=== PATIENT | female | born 1995 | race Caucasian/White ===

== ENCOUNTER 2017-08-20 17:14 | Emergency (ER) | payer OTHER, SELFPAY ==
[2017-08-20 17:15] VITALS: BP 138/97; PULSE 59; RESP 18; TEMP 36.9; O2SAT 97; BMI 22.6
--- NOTE | 2017-08-20 17:29 | ED.VISSUMM ---
- ER Visit Summary Date of Service: 08/20/17 Chief Complaint: Left thumb injury History of Present Illness: The patient is a 22 F presents to the emergency department with injury to her left thumb tip. Patient was cutting potatoes. She accidentally incised tip of the left thumb. She denies any other injury. A towel was placed and she presented here immediately. She does not take anticoagulants. She thinks her last tetanus is greater than 10 years ago. The patient is otherwise healthy. Physical Examination: Exam is relatively unremarkable. Patient is a 1 cm ovoid area of tissue loss in the distal tip of the thumb. There is some mild active bleeding. It does not involve the nail. Flexion and extension are preserved. Cap refill is less than 2 seconds. Test Results: [] Emergency Department Course and Treatment: The patient had no laceration that would benefit from primary closure as she had total tissue loss of the distal tip of the thumb. The area was irrigated. Surgifoam was placed in a loose dressing to prevent constrictive ischemia was placed. The patient was observed and had no further bleeding. We will have her keep the dressing in place for the next 24 hours. She was counseled to return to the emergency department with increasing pain or increasing bleeding. She is comfortable with this plan of care and will continue topical wound therapy after. She will be discharged home. Treatment Plan: [] Disposition: Discharge Impression: 1. Skin avulsion left thumb This note was generated with [employer] dictation software. It may contain incorrect words, spelling, and punctuation that were not noted in review of the chart prior to signing ED Disposition - Plan for ED Patient: Chief Complaint: Laceration Instructions: ED Laceration Hand Referrals: Andrew Lainez MD [Primary Care Provider] - Additional Instructions: Leave dressing in place for 24 hours.
[2017-08-20] MEDS: Diphth,Pertuss(Acell),Tet Vac 0.5 ML Vial IM (17:40)
[2017-08-20 18:21] VITALS: PULSE 85; RESP 16; O2SAT 99
== END 2017-08-20 18:21 | disposition home or self-care (01) ==
PROVIDERS: Emergency Provider Emergency Medicine; Family Provider Family Medicine; PCP Family Medicine
DX: S61.012A Laceration without foreign body of left thumb without damage to nail, initial encounter (principal); W26.0XXA Contact with knife, initial encounter; Y93.89 Activity, other specified; Y92.9 Unspecified place or not applicable
CPT/HCPCS: 90471; 90715; 99283

== ENCOUNTER → 2017-12-25 07:16 | Outpatient (CLI) | payer OTHER, SELFPAY ==
[2017-12-25 08:08] LABS: hCG Titer Quant., Serum 110 mIU/mL (<9 non-preg)
== END ==
PROVIDERS: Family Provider Family Medicine; PCP Family Medicine; Visit Provider Obstetrics & Gynecology Reproductive Endocrinology
DX: Z32.00 Encounter for pregnancy test, result unknown (principal)
CPT/HCPCS: 36415; 84702

== ENCOUNTER → 2017-12-27 07:16 | Outpatient (CLI) | payer OTHER, SELFPAY ==
[2017-12-27 08:24] LABS: hCG Titer Quant., Serum 282 mIU/mL (<9 non-preg)
== END ==
PROVIDERS: Family Provider Family Medicine; PCP Family Medicine; Visit Provider Obstetrics & Gynecology Reproductive Endocrinology
DX: Z32.01 Encounter for pregnancy test, result positive (principal)
CPT/HCPCS: 36415; 84702

== ENCOUNTER → 2018-03-26 11:13 | Outpatient (CLI) | payer OTHER, SELFPAY ==
[2018-03-24 13:33] VITALS: BMI 22.4
== END ==
PROVIDERS: Family Provider Family Medicine; PCP Family Medicine; Referring Provider Obstetrics & Gynecology; Visit Provider Obstetrics & Gynecology
DX: Z36.9 Encounter for antenatal screening, unspecified (principal)
CPT/HCPCS: 36415

== ENCOUNTER → 2018-04-10 08:25 | Outpatient (CLI) | payer OTHER, SELFPAY ==
[2018-03-24 13:33] VITALS: BMI 22.4
--- NOTE | 2018-04-10 08:27 | US_ITS ---
STUDY: SECOND AND THIRD TRIMESTER OBSTETRICAL ULTRASOUND REASON FOR EXAM: Female, 22 years old. Routine survey. LMP: November 27, 2017. TECHNIQUE: Transabdominal TECHNICAL QUALITY: Adequate. PRIOR ULTRASOUND: None. FINDINGS: There is a single intrauterine fetus. The fetus is in a breech presentation. There is demonstrated cardiac activity with a heart rate of 156 bpm. There is a normal amniotic fluid volume. The largest amniotic fluid pocket measures 7.0 cm x 3.7 cm. The amniotic fluid index (BEAR) is within normal limits. The placenta is anterior in location and is not low lying. There are Grade 0 placental changes. The cervix measures 3.2 cm in length. The bilateral adnexal regions are normal. BIOMETRY: BPD: 4.42 cm: 19 weeks, 3 days HC: 16.58 cm: 19 weeks, 2 days AC: 14.2 cm: 19 weeks, 4 days FL: 2.9 cm: 9 weeks, 0 days CI: 79% FL/BPD: 66% FL/HC: FL/AC: 20% HC/AC: 1.17 age by current US: 19 weeks, 3 days. CATRINA by current US: September 03, 2018. Estimated weight: 23 grams, +/- 41 grams, 53 %. Age by LMP: 19 weeks, 1 days. CATRINA by LMP: September 01, 2018. ANATOMY: Gender: Male Cranium: Normal lateral ventricles. Normal choroid plexus. Normal cerebellum. Normal cisterna magna. Normal face, nose and lips. Chest: Normal 4-chamber heart. Abdomen/Pelvis: Normal diaphragm. Normal stomach. Normal abdominal wall. Normal cord insertion. Normal 3 vessel cord. Normal kidneys. Normal bladder. Spine: Normal cervical spine. Normal thoracic spine. Normal lumbar spine. Normal sacrum. Extremities: Normal bilateral upper extremities. Normal bilateral lower extremities. US/OB Anatomy Scan IMPRESSION: Single live intrauterine gestation with a mean gestational age of 19 weeks and 3 days. Electronically Signed: Get Darnell MD at 9:44 EST Tel [phone], Service support ,
== END ==
PROVIDERS: Family Provider Family Medicine; PCP Family Medicine; Referring Provider Obstetrics & Gynecology; Visit Provider Obstetrics & Gynecology
DX: O09.00 Supervision of pregnancy with history of infertility, unspecified trimester (principal)
CPT/HCPCS: 76805

== ENCOUNTER 2018-04-28 11:46 | Emergency (ER) | payer OTHER, SELFPAY ==
[2018-04-21 11:03] VITALS: BMI 22.4
[2018-04-28 11:48] VITALS: BP 124/79; PULSE 70; RESP 17; TEMP 37.1; O2SAT 100; BMI 23.3
[2018-04-28 12:30] LABS: Bacteria 0 SEEN /hpf (None Seen); Mucous, Urine 0 SEEN /hpf (<or=2+); Red Blood Cells-Urine 0 SEEN /hpf (0-5); White Blood Cells 0 SEEN /hpf (0-5)
[2018-04-28 12:31] LABS: Color, Urine Yellow (Yellow); Glucose, Dipstick Normal (Normal); Ketone-Dipstick Negative (Negative); Leukocyte Esterase-Dipstick Negative /ul (Negative); Nitrite-Dipstick Negative (Negative); Occult Blood-Urine Negative /ul (Negative); Protein-Dipstick Negative (Negative); Urine Bilirubin Dipstick Negative (Negative); Urine Clarity Clear (Clear); Urine Urobilinogen Normal (Normal)
[2018-04-28 12:41] LABS: Squamous Epithelial Cells - UA 0-5 SEEN /hpf (5-10)
--- NOTE | 2018-04-28 13:04 | ED.VISSUMM ---
- ER Visit Summary Date of Service: 04/28/18 Chief Complaint: Back pain History of Present Illness: The patient is a 22 F who presents with a right low back pain for the past week. She states it started last Saturday and then did not have any symptoms Saturday or Saturday but returned on has been constant. It is better when she takes a deep breath worse when she moves. She states she talked to her AUTOMOBILE TIRE BUILDER as she is 22 weeks and was told to be evaluated in the emergency room for urinary tract infection or may be a kidney stone.. No fevers. Physical Examination: Afebrile vital signs are stable Gen: Well-nourished well-developed Head: Normocephalic atraumatic Eyes: Perrl EOMI ENT: TMs clear no rhinorrhea moist mucous membranes Neck: Supple no lymphadenopathy no JVD nontender CVS: Regular rate rhythm no murmurs normal S1-S2 Respiratory: No distress clear to auscultation bilaterally chest nontender Abdomen: Soft nontender nondistended normal bowel sounds no masses Back: There is visible and palpable muscle spasm of the right lumbar paraspinal musculature. It has tissue texture changes consistent with somatic dysfunction. No CVA tenderness. There is no rash Extremity: Nontender no edema Skin: Normal color no rash Neuro: alert orientated ?3 CN II-XII intact normal strength sensation reflexes gait cerebellar Psych: Normal affect normal mood Test Results: Urine specimen is normal. Emergency Department Course and Treatment: heart tones were normal. This is back spasm the patient will be treated conservatively. Impression: 1. Right lumbar muscle spasm This note was generated with [employer] dictation software. It may contain incorrect words, spelling, and punctuation that were not noted in review of the chart prior to signing ED Disposition - Plan for ED Patient: Disposition: Home or Assisted Living Chief Complaint: Flank Pain Instructions: ED Spasm Back No Trauma Additional Instructions: Follow-up with your AUTOMOBILE TIRE BUILDER as scheduled
--- NOTE | 2018-04-28 13:08 | ED.DCSUM_ITS ---
- ER Visit Summary Date of Service: 04/28/18 Chief Complaint: Back pain History of Present Illness: The patient is a 22 F who presents with a right low back pain for the past week. She states it started last Saturday and then did not have any symptoms Saturday or Saturday but returned on has been co nstant. It is better when she takes a deep breath worse when she moves. She states she talked to her SUPERVISOR WEAVING as she is 22 weeks and was told to be evaluated in the emergency room for urinary tract infection or may be a kidney stone.. No fevers. Physical Examination: Afebrile vital signs are stable Gen: Well-nourished well-developed Head: Normocephalic atraumatic Eyes: Perrl EOMI ENT: TMs clear no rhinorrhea moist mucous membranes Neck: Supple no lymphadenopathy no JVD nontender CVS: Regular rate rhythm no murmurs normal S1-S2 Respiratory: No distress clear to auscultation bilaterally chest nontender Abdomen: Soft nontender nondistended normal bowel sounds no masses Back: There is visible and palpable muscle spasm of the right lumbar paraspinal musculature. It has tissue texture changes consistent with somatic dysfunction. No CVA tenderness. There is no rash Extremity: Nontender no edema Skin: Normal color no rash Neuro: alert orientated ?3 CN II-XII intact normal strength sensation reflexes gait cerebellar Psych: Normal affect normal mood Test Results: Urine specimen is normal. Emergency Department Course and Treatment: heart tones were normal. This is back spasm the patient will be treated conservatively. Impression: 1. Right lumbar muscle spasm This note was generated with [employer] dictation software. It may contain incorrect words, spelling, and punctuation that were not noted in review of the chart prior to signing ED Disposition - Plan for ED Patient: Disposition: Home or Assisted Living Chief Complaint: Flank Pain Instructions: ED Spasm Back No Trauma Additional Instructions: Follow-up with your SUPERVISOR WEAVING as scheduled
[2018-04-28 13:20] VITALS: BP 109/67; PULSE 52; RESP 16; O2SAT 97
== END 2018-04-28 13:21 | disposition home or self-care (01) ==
PROVIDERS: Emergency Provider Emergency Medicine; Family Provider Family Medicine; PCP Family Medicine
DX: O99.89 Other specified diseases and conditions complicating pregnancy, childbirth and the puerperium (principal); M62.830 Muscle spasm of back; O99.342 Other mental disorders complicating pregnancy, second trimester; F41.9 Anxiety disorder, unspecified; Z3A.22 22 weeks gestation of pregnancy
CPT/HCPCS: 81001; 99282

== ENCOUNTER 2018-05-11 10:50 | Outpatient (CLI) | payer OTHER, SELFPAY ==
[2018-05-11 11:16] VITALS: BMI 22.8
--- NOTE | 2018-05-11 11:23 | US_ITS ---
STUDY: RENAL ULTRASOUND - COMPLETE REASON FOR EXAM: Female, 22 years old. Flank pain, hematuria, TECHNIQUE: Ultrasound evaluation of the kidneys was performed with real-time and static garza-scale imaging. COMPARISON: None. FINDINGS: RIGHT KIDNEY: Normal location of the right kidney, which is normal in size. The right kidney measures 12.3 x 5.1 x 4.7 cm. There is a normal cortex of the right kidney. The renal cortex measures 1.3 cm. There is no right renal mass or cyst. Echogenic focus of the right knik kidney measures 5 mm but no demonstrated shadowing. There is moderate hydronephrosis of the right kidney. DISTAL RIGHT URETER: There is non-visualization of the distal right ureter. There is no demonstrated right ureterovesical junction calculus. There is a visualized right ureteral jet. LEFT KIDNEY: Normal location of the left kidney, which is normal in size. The left kidney measures 11.3 x 4.7 x 5.9 cm. There is a normal cortex of the left kidney. The renal cortex measures 1.5 cm. There is no left renal mass or cyst. There are no left renal calculi. There is no left hydronephrosis. DISTAL LEFT URETER: There is non-visualization of the distal left ureter. There is no demonstrated left ureterovesical junction calculus. There is a visualized left ureteral jet. Intrauterine fetus noted. BLADDER: The distended urinary bladder has a volume of 228 ml. There is a normal wall thickness of the distended urinary bladder. There is no demonstrated mass within the urinary bladder. There are no demonstrated bladder calculi. US/Kidney and Bladder IMPRESSION: 1. Moderate right hydronephrosis. Right ureter jet is confirmed. 2. 5 mm echogenic focus of the right kidney may represent a nonshadowing calculus. 3. . Electronically Signed: Juan Dang MD at 12:57 EST , Service support ,
[2018-05-11 11:55] LABS: Absolute Neutrophil Count 5.1 X10^3/uL (2.0-7.7); Basophil# 0.02 X10^3/uL; Basophil% 0.3 % (0-1); Eosinophil# 0.04 X10^3/uL; Eosinophils% 0.6 % (0-5); Hematocrit 42.5 % (37-47); Hemoglobin 14.2 g/dl (12.0-15.0); Lymphocyte % 13.5 % (19-41); Mean Corp Hgb Conc 33.4 g/gl (32-36); Mean Corpuscular Hgb 31.3 pg (27.0-32.0); Mean Corpuscular Volume 93.8 fL (81-99); Mean Platelet Vol. 10.7 fl (6.2-12.0); Neutrophil # 5.07 X10^3/uL (2.7-7.7); Neutrophil % 76.1 % (47-70); Platelet Count 192 K/mm3 (150-450); RBC Distribution Width CV 13.4 % (11.6-14.6); Red Blood Count 4.53 M/mm3 (4.2-5.4); White Blood Count 6.7 K/mm3 (4.4-11.0)
[2018-05-11 11:56] LABS: POSITIVE COUNT NO; POSITIVE DIFFERENTIAL NO; POSITIVE MORPHOLOGY NO
[2018-05-11 11:57] LABS: Color, Urine Red (Yellow); Glucose, Dipstick Normal (Normal); Ketone-Dipstick Negative (Negative); Leukocyte Esterase-Dipstick 25 /ul (Negative); Nitrite-Dipstick Negative (Negative); Occult Blood-Urine 250 /ul (Negative); Protein-Dipstick 100 mg/dl (Negative); Specific Gravity, Urine 1.015 (1.002-1.030); Urine Bilirubin Dipstick Negative (Negative); Urine Clarity Cloudy (Clear); Urine Urobilinogen Normal (Normal)
[2018-05-11] MEDS: Lactated Ringers 1,000 ML 999 ML IV (11:58)
[2018-05-11] MEDS: HYDROmorphone 1 MG/ML Syringe IV ×3 (12:06→16:15)
[2018-05-11] MEDS: Lactated Ringers 1,000 ML 200 ML IV (12:56)
[2018-05-11] MEDS: proMETHazine 25 MG/ML Syringe 12.5 MG IV (13:00)
[2018-05-11] MEDS: Ondansetron ODT 4 MG Tablet PO (16:40)
[2018-05-11] MEDS: oxyCODONE 5 MG Tablet PO (17:10)
--- NOTE | 2018-05-13 08:29 | OB.TRI.NOTE ---
- Problem List (1) Kidney stone complicating Status: Acute History of Present Illness Date of Service: 05/11/18 Was patient seen by the physician?: Yes Reason For Visit: PAIN, BLEEDING Date of Service: 05/11/18 History of Present Illness: 22 yo presents with severe right flank pain and hematuria. she also has some nausea but denies any fevers. she has some dysuria and the her pain is migrating down into her lower abdomen. Allergies amoxicillin Allergy (Verified 05/11/18 11:47) Angioedema Laboratory Studies: Laboratory Tests 05/11/18 05/11/18 Range/Units 11:40 11:10 WBC 6.7 (4.4-11.0) K/mm3 RBC 4.53 (4.2-5.4) M/mm3 Hgb 14.2 (12.0-15.0) g/dl Hct 42.5 (37-47) % MCV 93.8 (81-99) fL MCH 31.3 (27.0-32.0) pg MCHC 33.4 (32-36) g/gl RDW 13.4 (11.6-14.6) % RDW Differential 46.0 H (35.1-43.9) fl Plt Count 192 (150-450) K/mm3 MPV 10.7 (6.2-12.0) fl Immature Gran % (Auto) 0.500 (0.0-0.9) % Neut % (Auto) 76.1 H (47-70) % Lymph % (Auto) 13.5 L (19-41) % [place] % (Auto) 9.0 (0-10) % Eos % (Auto) 0.6 (0-5) % Baso % (Auto) 0.3 (0-1) % Absolute Neuts (auto) 5.1 (2.0-7.7) X10^3/uL Absolute Lymphs (auto) 0.90 (0.83-4.51) X10^3/ul Total Counted Not Reportable Urine Color Red (Yellow) Urine Clarity Cloudy (Clear) Urine pH 8.0 (5.0 - 8.0) Ur Specific [place] 1.015 (1.002-1.030) Urine Protein 100 H (Negative) mg/dl Urine Glucose (UA) Normal (Normal) mg/dl Urine Ketones Negative (Negative) mg/dl Urine Occult Blood 250 H (Negative) /ul Urine Nitrite Negative (Negative) Urine Bilirubin Negative (Negative) mg/dL Urine Urobilinogen Normal (Normal) mg/dl Ur Leukocyte Esterase 25 H (Negative) /ul Review of Systems Constitutional: Denies: Fever Cardiovascular: Denies: Chest Pain Respiratory: Denies: Cough Gastrointestinal: Reports: Abdominal Pain Genitourinary: Reports: Hematuria Gynecological: Denies: Vaginal bleeding, Vaginal discharge Musculoskeletal: Reports: Back Pain NST - FHR Rate Baby A Baseline: 150 Variability:: Moderate Accelerations:: 10 x 10 Decelerations:: None NST Reactive:: Appropriate for gestational age Uterine Activity:: no ctx Impression/Plan 22 yo with nephrolithiasis in aggressive IVFs, renal ultrasound shows stone, iv and then oral pain control. dc home with pain control
== END 2018-05-11 18:15 | disposition home or self-care (01) ==
LOC: WPOUT 10:57 → OBT 10:59
PROVIDERS: Family Provider Family Medicine; PCP Family Medicine; Referring Provider Obstetrics & Gynecology; Visit Provider Obstetrics & Gynecology
DX: O26.839 Pregnancy related renal disease, unspecified trimester (principal); N13.2 Hydronephrosis with renal and ureteral calculous obstruction; Z3A.00 Weeks of gestation of pregnancy not specified
CPT/HCPCS: 96361 ×6; 96374; 96375; 96376 ×2; 36415; 59025; 59050; 76770; 81002; 85025; 87086; 87088; 99218; J7120; G0378

== ENCOUNTER → 2018-06-19 15:52 | Outpatient (CLI) | payer OTHER, SELFPAY ==
[2018-06-19 15:52] VITALS: BMI 24.4
[2018-06-19 16:25] LABS: Absolute Lymphocyte Count 1.17 X10^3/ul (0.83-4.51); Absolute Neutrophil Count 5.6 X10^3/uL (2.0-7.7); Basophil# 0.01 X10^3/uL; Basophil% 0.1 % (0-1); Eosinophil# 0.09 X10^3/uL; Eosinophils% 1.2 % (0-5); Hematocrit 39.3 % (37-47); Hemoglobin 12.9 g/dl (12.0-15.0); Lymphocyte # 1.17 X10^3/ul (4.0); Mean Corp Hgb Conc 32.8 g/gl (32-36); Mean Corpuscular Hgb 31.5 pg (27.0-32.0); Mean Corpuscular Volume 96.1 fL (81-99); Mean Platelet Vol. 11.7 fl (6.2-12.0); Monocyte# 0.93 X10^3/uL; Monocyte% 11.9 % (0-10); Neutrophil # 5.57 X10^3/uL (2.7-7.7); Neutrophil % 71.3 % (47-70); Platelet Count 157 K/mm3 (150-450); RBC Distribution Width CV 13.5 % (11.6-14.6); RBC Distribution Width SD 46.8 fl (35.1-43.9); Red Blood Count 4.09 M/mm3 (4.2-5.4); White Blood Count 7.8 K/mm3 (4.4-11.0)
[2018-06-19 16:28] LABS: POSITIVE COUNT NO; POSITIVE DIFFERENTIAL NO; POSITIVE MORPHOLOGY NO
== END ==
PROVIDERS: Family Provider Family Medicine; PCP Family Medicine; Referring Provider Nurse Practitioner Women's Health; Visit Provider Nurse Practitioner Women's Health
DX: O09.00 Supervision of pregnancy with history of infertility, unspecified trimester (principal); Z3A.00 Weeks of gestation of pregnancy not specified
CPT/HCPCS: 36415; 85025; 86850; 86900

== ENCOUNTER → 2018-07-25 11:26 | Outpatient (CLI) | payer OTHER, SELFPAY ==
[2018-07-22 09:32] VITALS: BMI 24.8
[2018-07-30 11:47] LABS: Influenza B 1:32 (Neg:<1:8)
== END ==
PROVIDERS: Family Provider Family Medicine; PCP Family Medicine; Referring Provider Family Medicine; Visit Provider Family Medicine
DX: R68.89 Other general symptoms and signs (principal)
CPT/HCPCS: 36415; 86710

== ENCOUNTER → 2018-08-05 17:28 | Outpatient (CLI) | payer OTHER, SELFPAY ==
[2018-08-05 09:23] VITALS: BMI 24.8
== END ==
PROVIDERS: Family Provider Family Medicine; PCP Family Medicine; Referring Provider Obstetrics & Gynecology; Visit Provider Obstetrics & Gynecology
DX: Z34.90 Encounter for supervision of normal pregnancy, unspecified, unspecified trimester (principal)
CPT/HCPCS: 87081

== ENCOUNTER → 2018-08-20 12:19 | Outpatient (CLI) | payer OTHER, SELFPAY ==
[2018-08-19 09:15] VITALS: BMI 26.5
--- NOTE | 2018-08-20 12:20 | US_ITS ---
STUDY: SECOND AND THIRD TRIMESTER OBSTETRICAL ULTRASOUND - LIMITED REASON FOR EXAM: Female, 23 years old. Routine survey. LMP: November 27, 2017. PRIOR ULTRASOUND: Comparison is made with prior examination dated April 10, 2018. TECHNIQUE: Transabdominal TECHNICAL QUALITY: Adequate. FINDINGS: There is a single intrauterine fetus. The fetus is in a cephalic presentation. There is demonstrated cardiac activity with a heart rate of 133 bpm. There is a normal amniotic fluid volume. The largest amniotic fluid pocket measures 5.1 cm. The amniotic fluid index (BEAR) is 17.6 cm. The placenta is anterior in location and is not low lying. There are Grade 2 placental changes. The cervix measures 2.8 cm in length. BIOMETRY: BPD: 8.67 cm: 35 weeks, 0 days HC: 31.97 cm: 36 weeks, 1 days AC: 34.06 cm: 38 weeks, 0 days FL: 6.97 cm: 35 weeks, 6 days Age by LMP: 38 weeks, 0 days. CATRINA by LMP: September 03, 2018. age by prior US: 35 weeks, 3 days. CATRINA by prior US: September 21, 2018. age by current US: 36 weeks, 2 days. CATRINA by current US: September 15, 2018. Estimated weight: 3054 grams, +/- 466 grams, 33 percentile. Gender: Male US/OB Limited With Biometrics IMPRESSION: Single live intrauterine gestation with a mean gestational age of 35 weeks and 3 days. The measurements obtained today fall within normal expected range. Electronically Signed: Get Darnell, at 15:36 EDT , Service support ,
== END ==
PROVIDERS: Family Provider Family Medicine; PCP Family Medicine; Referring Provider Obstetrics & Gynecology; Visit Provider Obstetrics & Gynecology
DX: O09.00 Supervision of pregnancy with history of infertility, unspecified trimester (principal); Z3A.37 37 weeks gestation of pregnancy
CPT/HCPCS: 76816

== ENCOUNTER → 2018-08-26 09:50 | Outpatient (CLI) | payer OTHER, SELFPAY ==
[2018-08-26 09:18] VITALS: BMI 24.8
[2018-08-26 10:16] LABS: Protein, Urine (Random) 26.6 mg/dL (<11.9); Protein:Creat Ratio 152 mg/g CRE (0-200)
== END ==
PROVIDERS: Family Provider Family Medicine; PCP Family Medicine; Referring Provider Obstetrics & Gynecology; Visit Provider Obstetrics & Gynecology
DX: R80.9 Proteinuria, unspecified (principal)
CPT/HCPCS: 82570; 84156

== ENCOUNTER 2018-08-26 23:45 | Inpatient (IN) | payer OTHER, SELFPAY ==
[2018-08-26 09:18] VITALS: BMI 24.8
[2018-08-27 00:55] VITALS: BMI 27.2
[2018-08-27] MEDS: Lactated Ringers 1,000 ML 50 ML IV ×4 (01:00→10:05)
[2018-08-27 01:19] LABS: Absolute Neutrophil Count 6.2 X10^3/uL (2.0-7.7); Basophil# 0.04 X10^3/uL; Basophil% 0.4 % (0-1); Eosinophil# 0.09 X10^3/uL; Hematocrit 37.9 % (37-47); Hemoglobin 13.2 g/dl (12.0-15.0); Lymphocyte % 20.8 % (19-41); Mean Corp Hgb Conc 34.8 g/gl (32-36); Mean Corpuscular Hgb 31.7 pg (27.0-32.0); Mean Corpuscular Volume 91.1 fL (81-99); Mean Platelet Vol. 12.1 fl (6.2-12.0); Monocyte# 0.92 X10^3/uL; Monocyte% 10.1 % (0-10); Neutrophil # 6.18 X10^3/uL (2.7-7.7); Neutrophil % 67.5 % (47-70); Platelet Count 120 K/mm3 (150-450); RBC Distribution Width CV 12.4 % (11.6-14.6); RBC Distribution Width SD 41.5 fl (35.1-43.9); Red Blood Count 4.16 M/mm3 (4.2-5.4); White Blood Count 9.2 K/mm3 (4.4-11.0)
[2018-08-27 01:21] LABS: POSITIVE COUNT NO; POSITIVE DIFFERENTIAL NO; POSITIVE MORPHOLOGY NO
[2018-08-27 01:46] LABS: ALB/GLOB Ratio 0.8 RATIO (0.9-2.4); AST(SGOT) 28 U/L (15-37); Alanine Aminotransfer ALT/SGPT 27 U/L (13-56); Albumin, Serum 2.6 g/dL (3.2-5.0); Alkaline Phosphatase 138 U/L (45-117); Anion Gap 7 (5-15); BUN 18 mg/dL (7-18); BUN/Creat Ratio 23.1 RATIO (10-20); Chloride 110 mmol/L (98-107); Creatinine, Serum 0.78 mg/dL (0.55-1.02); EST Glomerular Filtration Rate 96 mL/min (>60); Est Glom Filt Rate - Afr Amer 116 mL/min (>60); Globulin 3.4 g/dL (2.2-4.2); Glucose 76 mg/dL (74-106); Potassium 4.1 mmol/L (3.5-5.1); Sodium Level 136 mmol/L (136-145)
--- NOTE | 2018-08-27 03:10 | PCM.HP.OB ---
- Problem List (1) Active labor at term Status: Acute (2) Kidney stone complicating Status: Acute Qualifiers: (3) Status: Acute Qualifiers: Comment: nipt normal, carrier screening negative. afp normal. anatomy scan reviewed and normal. (4) Supervision of with history of infertility Status: Acute Comment: PRR CATRINA 09/03/18 boy Dontae Adair IVF Declined GCT: 1 wk of blood glucose checks qid all WNL. In chart History Date of Admission: 08/27/18 Final CATRINA: 09/03/18 Gestational age: 39 Weeks and 0 Days History of this : This is a 23 year-old, , at 39 weeks gestational age presents IAL 4 cm dilated and with elevated bps in the mild range. she dneies any vb lof admits good fm and regular ctx. she denies any FLORES tonight. Allergies amoxicillin Allergy (Verified 08/27/18 00:57) Angioedema Home Medications: Home Medications Pnv,Calcium 72/Iron/Folic Acid [ Plus Tablet] 1 ea PO DAILY 08/20/17 pyridoxine (vitamin B6) 50 mg capsule 50 mg PO DAILY 03/24/18 escitalopram 5 mg tablet 10 mg PO DAILY tab 07/22/18 Smoking Status: Never smoker Alcohol: None Number of Fetus(es): 1 Heart Tracin moderate variability reactive no decelerations category I tracing [place]: regular History Past Pregnancies: Past Pregnancies Delivery Date Name GA/Weeks Outcome Route Weight Infant Gender Labor Length Anesthesia Delivery Location Provider FOB Labs: Mom's Labs & Results 08/27/18 08/27/18 08/27/18 01:00 01:00 01:00 WBC 9.2 RBC 4.16 L Hgb 13.2 Hct 37.9 MCV 91.1 MCH 31.7 MCHC 34.8 RDW 12.4 RDW Differential 41.5 Plt Count 120 L MPV 12.1 H Immature Gran % (Auto) 0.200 Neut % (Auto) 67.5 Lymph % (Auto) 20.8 [place] % (Auto) 10.1 H Eos % (Auto) 1.0 Baso % (Auto) 0.4 Absolute Neuts (auto) 6.2 Absolute Lymphs (auto) 1.90 Total Counted Not Reportable Sodium 136 Potassium 4.1 Chloride 110 H Carbon Dioxide 19.0 L Anion Gap 7 BUN 18 Creatinine 0.78 Estim Creat Clear Calc 87.20 Est GFR (MDRD) Af Amer 116 Est GFR (MDRD) Non-Af 96 BUN/Creatinine Ratio 23.1 H Glucose 76 Calcium 8.0 L Total Bilirubin 0.30 AST 28 ALT 27 Alkaline Phosphatase 138 H Total Protein 6.0 L Albumin 2.6 L Globulin 3.4 Albumin/Globulin Ratio 0.8 L Blood Type A POSITIVE Antibody Screen NEGATIVE Course Did the patient receive Yes care? Labs Blood Type: A RH: POSITIVE RPR/VDRL/Syphilis Nonreactive Rubella status Immune HbSAg Negative Date Done: 02/11/18 Chlamydia Negative Gonorrhea Negative HIV/AIDS Non-Reactive Group B Strep: Negative Current Obstetrical History Gestational Diabetes No Incompetent Cervix No Infertility Yes IUGR No Macrosomia No Hypertension/Pre-eclampsia No Placenta Previa/Abruption No PTL/PROM No Uterine anomaly No Oligohydramnios No Polyhydramnios No Multiple gestation No Past Medical History Asthma No Diabetes No Hypertension No Heart disease No Mitral valve prolapse No Neurologic/Seizure disorder/ No Migraines Kidney disease No Liver disease No Varicosities No Clotting disorders/Hx of DVT No Thyroid Dysfunction No Other medical diseases No Psychiatric disorders Yes Major trauma No Abnormal PAP smear No Sleep apnea No Mammogram in the last 2 years No Social History Marital Status: SINGLE Alleged father Adair Hx Smoking No Smoking Status Never smoker Expected Delivery Method: Spontaneous Vaginal Review of Systems Constitutional: Denies: Fever, Malaise Eyes: Denies: Blurred vision, Vision Change HEENT: Denies: Head Aches, Visual Changes Cardiovascular: Denies: Chest Pain, Palpitations Respiratory: Denies: Cough, Shortness of Breath, Wheezing Gastrointestinal: Denies: Abdominal Pain, Diarrhea, Nausea, Vomiting Genitourinary: Denies: Dysuria, Hematuria Musculoskeletal: Denies: Joint Pain, Muscle pain Skin: Denies: Lesions, Rash Neurological: Denies: Blurred vision, Focal weakness, Headaches Psychiatric: Denies: Anxiety, Depression Endocrine: Denies: Heat/ Cold Intolerance Hematologic/ Lymphatic: Denies: Easy Bruising, Easy Bleeding Physical Exam General: Alert, Cooperative, No apparent distress HEENT: Atraumatic, Normocephalic. Negative for: Thyromegaly, Lymphadenopathy Cardiovascular: Regular rate Lungs: Normal air movement Abdomen: Soft, Non Tender, Gravid Neurological: Deep Tendon Reflexes 2+/4 and Symmetrical, Neuro grossly intact. Negative for: Clonus [employer]: Normal external genitalia. Negative for: Vulvar lesions Estimated gestational size: Appropriate for gestational size Presentation: Cephalic Assessment/Plan All Active Problems (Last Reviewed 08/26/18 @ 09:24 by Massiel Zabala) Active labor at term (Acute) Kidney stone complicating (Acute) (Acute) Supervision of with history of infertility (Acute) This is a 23 year-old, at 39 weeks gestational age presents IAL Patient presents IAL, plan expectant management for , pitocin/AROM PRN if needed. Pain management: Plans epidural. GBS negative. Management of any complications: None I have reviewed the [facility] and made any clinically relevant updates.
[2018-08-27] MEDS: fentaNYL-bupivacaine (epidural) 100 ML BAG EPIDURAL (03:14)
[2018-08-27] MEDS: Oxytocin 30 units/NS 500 ml 30 UNITS/500 ML IV.SOLN IV (08:00)
[2018-08-27] MEDS: Amnioinfusion- 0.9% NS 1,000 ML IV.SOLN. INTRA-UTER (09:32)
[2018-08-27] MEDS: Oxytocin 30 units/NS 500 ml 30 UNITS/500 ML IV.SOLN 334 UNITS IV (10:28)
--- NOTE | 2018-08-27 11:02 | PCM.OPRPT ---
Problem List (1) Active labor at term Status: Acute (2) Kidney stone complicating Status: Acute Qualifiers: (3) Status: Acute Qualifiers: Comment: nipt normal, carrier screening negative. afp normal. anatomy scan reviewed and normal. (4) Supervision of with history of infertility Status: Acute Comment: PRR CATRINA 09/03/18 morro Diggs Adair IVF Declined GCT: 1 wk of blood glucose checks qid all WNL. In chart Vaginal Delivery Maternal Presentation: Active Labor 23-year-old G1, P0 at 38 weeks presents in active labor Amniotic Membrane Rupture Type: Artificial Amniotic Fluid Description: Clear Final CATRINA: 09/03/18 Gestational age: 39 Weeks and 1 Days Date of Procedure: 08/27/18 Pre-Operative Diagnosis: In active labor, recurrent heart rate decelerations Post-Operative Diagnosis: Same Surgery/ Procedure Performed: Vacuum Assisted Vaginal Delivery Type of Anesthesia: Epidural Description of Procedure: Patient began pushing and developed recurrent severe variable decelerations and therefore a vacuum was applied and the +3 station. There was visible descent but maternal tissue limited descent and therefore a midline episiotomy was cut. With 1 pull with 1 contraction she delivered the head in the panda presentation. The head was delivered atraumatically and a loose nuchal cord ?1 was identified and easily reduced over the infant's head. The anterior and posterior shoulders delivered without complication followed by the rest of the infant and the was placed on the maternal abdomen. Delayed cord clamping was employed for approximately 60 seconds. Cord was clamped and cut and gentle traction was applied to the cord and the placenta delivered spontaneously immediately following it was noted to be intact with three-vessel cord. The perineum and vagina were inspected and noted to have third degree extension of the episiotomy and was repaired in the usual fashion. . Patient and infant tolerated delivery well. Presentation: PANDA Placental Delivery Description: Spontaneous Placenta Disposition: [facility] Cord Entanglement: Around neck x 1, loose Infant A gender: Male Episiotomy Description: Midline Laceration: Perineal Extension/lac, 3rd degree Medications given after delivery: IV Pitocin Complications: None
[2018-08-27] MEDS: Oxytocin 30 units/NS 500 ml 30 UNITS/500 ML IV.SOLN 167 UNITS IV (11:03)
[2018-08-27] MEDS: Naproxen 250 MG Tablet 500 MG PO ×2 (13:34→21:40)
[2018-08-27 16:24] VITALS: BP 134/89; PULSE 56; RESP 16; TEMP 36.4; O2SAT 96
[2018-08-27] MEDS: Acetaminophen 500 MG Tablet 1000 MG PO (19:19)
[2018-08-27 20:55] VITALS: BP 143/82; PULSE 55; RESP 16; TEMP 36.1; O2SAT 99
[2018-08-27] MEDS: Dibucaine 30 GM Tube 1 APPLIC TOPICAL (21:40)
[2018-08-28 00:29] VITALS: BP 115/84; PULSE 61; RESP 16; TEMP 36.6
[2018-08-28] MEDS: Acetaminophen 500 MG Tablet 1000 MG PO ×3 (03:03→23:54)
[2018-08-28 03:15] VITALS: BP 130/70; PULSE 58; RESP 18; TEMP 35.6
[2018-08-28 07:43] VITALS: BP 137/83; PULSE 65; RESP 18; TEMP 36.6; O2SAT 100
[2018-08-28] MEDS: oxyCODONE 5 MG Tablet PO (08:19)
[2018-08-28] MEDS: Senna/Docusate Sodium 1 Tablet PO (08:21)
[2018-08-28] MEDS: Naproxen 250 MG Tablet 500 MG PO ×2 (09:43→17:45)
[2018-08-28] MEDS: Escitalopram Oxalate 10 MG Tablet PO (09:43)
[2018-08-28 14:00] VITALS: BP 121/67; PULSE 74; RESP 16; TEMP 36.7; O2SAT 97
[2018-08-28 21:20] VITALS: BP 131/72; PULSE 62; RESP 18; TEMP 36.3
[2018-08-29 02:55] VITALS: BP 134/96; PULSE 73; RESP 18; TEMP 36
[2018-08-29] MEDS: Naproxen 250 MG Tablet 500 MG PO ×3 (03:13→19:44)
[2018-08-29 04:55] VITALS: BP 147/92; PULSE 60; RESP 18; TEMP 36.1
--- NOTE | 2018-08-29 08:18 | PCM.PN.OB ---
Patient Problems: Active and Suspected Problems (Last Reviewed 08/26/18 @ 09:24 by Massiel Zabala) Active labor at term (Acute) Subjective: doing well no complaints pain controlled no CP SOB N V ambulating well tolerating po lochia moderate, going well-tearful today. Baby in SCN for low blood sugars although improving. - Physical Exam General: Alert, Oriented x3 Abdomen: Soft, Non Tender, - - FF below U Vital Signs Temp Pulse Resp BP Pulse Ox 97.0 F L 60 18 147/92 H 97 08/29/18 04:55 08/29/18 04:55 08/29/18 04:55 08/29/18 04:55 08/28/18 14:00 Oxygen Delivery Method Room Air Weight: 148 lb 12.992 oz Body Mass Index (BMI) 27.2 Intake and Output for Last 24 Hours 08/27/18 08/28/18 08/29/18 23:59 23:59 23:59 Output Total 550 / 550 Balance -550 / -550 Medical Necessity - Tobacco Use Smoking Status: Never smoker Assessment/Plan All Active Problems (Last Reviewed 08/26/18 @ 09:24 by Massiel Zabala) Active labor at term (Acute) Kidney stone complicating (Acute) (Acute) Supervision of with history of infertility (Acute) s/p PPD # 2 1. routine post delivery care 2. breast feeding- support given 3. rh positive 4. rubella immune 5. encourage stool softener
--- NOTE | 2018-08-29 08:19 | DCINST_ITS ---
Additional Instructions: If you experience any of the following, contact your healthcare provider. * Bleeding that soaks a pad every hour for 2 hours * Fever 100.4 or higher * Unrelieved incision or abdominal pain * Swelling, redness, discharge or bleeding from your incision or episiotomy site * Your incision begins to separate * Problems urinating (including inability to urinate or burning while urinating). * Visual changes * Severe headache * Flu-like symptoms * Pain or redness in one of both of your breasts * Pain, warmth, tenderness or swelling in your legs, especially the calf area * Frequent nausea and vomiting * Symptoms of depression or anxiety If you experience any of the following, call 911 or go to the nearest Emergency Room. * Chest pain * Problems breathing * Seizure activity * Partial or complete paralysis of a body part, slurred speech, weakness or drooping of the face, or a sudden inability to walk or hold your balance Allergies/Adverse Reactions: Allergies amoxicillin Allergy (Verified 08/27/18 00:57) Angioedema Medications to take at Discharge Pnv,Calcium 72/Iron/Folic Acid [ Plus Tablet] 1 ea PO DAILY 08/20/17 pyridoxine (vitamin B6) 50 mg capsule 50 mg PO DAILY 03/24/18 escitalopram 5 mg tablet 10 mg PO DAILY tab 07/22/18 Primary Care Physician: Andrew Lainez MD [Primary Care Provider] - Test Results: Test results from this visit will be discussed in further detail at your follow- up appointment, if applicable.
--- NOTE | 2018-08-29 08:19 | PCM.DCVAG ---
Additional Instructions: If you experience any of the following, contact your healthcare provider. Bleeding that soaks a pad every hour for 2 hours Fever 100.4 or higher Unrelieved incision or abdominal pain Swelling, redness, discharge or bleeding from your incision or episiotomy site Your incision begins to separate Problems urinating (including inability to urinate or burning while urinating). Visual changes Severe headache Flu-like symptoms Pain or redness in one of both of your breasts Pain, warmth, tenderness or swelling in your legs, especially the calf area Frequent nausea and vomiting Symptoms of depression or anxiety If you experience any of the following, call 911 or go to the nearest Emergency Room. Chest pain Problems breathing Seizure activity Partial or complete paralysis of a body part, slurred speech, weakness or drooping of the face, or a sudden inability to walk or hold your balance Allergies/Adverse Reactions: Allergies amoxicillin Allergy (Verified 08/27/18 00:57) Angioedema Medications to take at Discharge Pnv,Calcium 72/Iron/Folic Acid [ Plus Tablet] 1 ea PO DAILY 08/20/17 pyridoxine (vitamin B6) 50 mg capsule 50 mg PO DAILY 03/24/18 escitalopram 5 mg tablet 10 mg PO DAILY tab 07/22/18 Primary Care Physician: Andrew Lainez MD [Primary Care Provider] - Test Results: Test results from this visit will be discussed in further detail at your follow-up appointment, if applicable.
[2018-08-29 08:30] VITALS: BP 141/98; PULSE 69; RESP 16; TEMP 36.1
[2018-08-29] MEDS: Acetaminophen 500 MG Tablet 1000 MG PO ×2 (09:10→16:32)
[2018-08-29] MEDS: Senna/Docusate Sodium 1 Tablet PO (09:14)
[2018-08-29] MEDS: Escitalopram Oxalate 10 MG Tablet PO (11:49)
[2018-08-29 12:53] VITALS: BP 156/89
[2018-08-29 14:49] VITALS: BP 145/77
[2018-08-29 16:43] VITALS: BP 144/97; PULSE 66; RESP 16; TEMP 36.3; O2SAT 99
--- NOTE | 2018-08-29 18:59 | NURSING ---
consult scheduled for Saturday 09/02 at 1300 for following up latching observation from [facility]. Tonya DAVIS
== END 2018-08-29 19:50 | disposition home or self-care (01) | DRG 768 ==
PROVIDERS: Admitting Provider Obstetrics & Gynecology; Family Provider Family Medicine; PCP Family Medicine; Referring Provider Obstetrics & Gynecology; Visit Provider Obstetrics & Gynecology
DX: O76 Abnormality in fetal heart rate and rhythm complicating labor and delivery (principal); Z37.0 Single live birth; O70.20 Third degree perineal laceration during delivery, unspecified; O69.81X0 Labor and delivery complicated by cord around neck, without compression, not applicable or unspecified; O99.343 Other mental disorders complicating pregnancy, third trimester; F41.9 Anxiety disorder, unspecified; O99.89 Other specified diseases and conditions complicating pregnancy, childbirth and the puerperium; N20.0 Calculus of kidney; Z3A.39 39 weeks gestation of pregnancy
CPT/HCPCS: 59025; 59050; 80053; 85025; 86850; 86900; 99218; J7030; J7120; G0378

== ENCOUNTER → 2019-07-17 17:53 | Outpatient (CLI) | payer OTHER, SELFPAY ==
[2019-07-17 13:48] VITALS: BMI 27.2
== END ==
PROVIDERS: PCP Family Medicine; Visit Provider Obstetrics & Gynecology
DX: R30.0 Dysuria (principal)
CPT/HCPCS: 87086; 87088

== ENCOUNTER → 2019-08-19 08:51 | Outpatient (CLI) | payer OTHER, SELFPAY ==
[2019-07-17 13:48] VITALS: BMI 27.2
[2019-08-19 09:20] LABS: hCG Titer Quant., Serum 556 mIU/mL (1-3)
== END ==
PROVIDERS: PCP Family Medicine; Referring Provider Nurse Practitioner Women's Health; Visit Provider Nurse Practitioner Women's Health
DX: Z34.90 Encounter for supervision of normal pregnancy, unspecified, unspecified trimester (principal)
CPT/HCPCS: 36415; 84702

== ENCOUNTER → 2019-08-21 08:15 | Outpatient (CLI) | payer OTHER, SELFPAY ==
[2019-07-17 13:48] VITALS: BMI 27.2
[2019-08-21 09:05] LABS: hCG Titer Quant., Serum 1150 mIU/mL (1-3)
== END ==
PROVIDERS: PCP Family Medicine; Referring Provider Nurse Practitioner Women's Health; Visit Provider Nurse Practitioner Women's Health
DX: Z34.90 Encounter for supervision of normal pregnancy, unspecified, unspecified trimester (principal)
CPT/HCPCS: 36415; 84702

== ENCOUNTER → 2019-09-07 11:40 | Outpatient (CLI) | payer OTHER, SELFPAY ==
[2019-09-07 11:40] VITALS: BMI 21.5
[2019-09-07 17:53] LABS: Amphetamine Urine VISTA NEGATIVE (<1000 ng/mL); Barbiturate Urine VISTA NEGATIVE (< 200 ng/mL); Benzodiazepine Urine VISTA NEGATIVE (< 200 ng/mL); Cocaine Urine VISTA NEGATIVE (< 300 ng/mL); Ecstacy Urine VISTA NEGATIVE (< 500 ng/mL); Methadone Urine VISTA NEGATIVE (< 300 ng/mL); PCP Urine VISTA NEGATIVE (< 25 ng/mL); THC Urine VISTA NEGATIVE (< 50 ng/mL); Vista UDS pH Range 6
[2019-09-07 19:40] LABS: Chlamydia Trachomatis by PCR Negative (Negative); Neisserai gonorrhoeae by PCR Negative (Negative); Probe Check PASS; Sample Adequacy Control PASS; Specimen Processing Control PASS
== END ==
PROVIDERS: PCP Family Medicine; Referring Provider Obstetrics & Gynecology; Visit Provider Obstetrics & Gynecology
DX: Z34.90 Encounter for supervision of normal pregnancy, unspecified, unspecified trimester (principal)
CPT/HCPCS: 80307; 87086; 87088; 87491; 87591

== ENCOUNTER → 2019-09-29 10:17 | Outpatient (CLI) | payer OTHER, SELFPAY ==
[2019-09-07 11:40] VITALS: BMI 21.5
[2019-09-29 10:49] LABS: Absolute Neutrophil Count 3.6 X10^3/uL (2.0-7.7); Basophil# 0.03 X10^3/uL; Basophil% 0.5 % (0-1); Eosinophil# 0.13 X10^3/uL; Eosinophils% 2.3 % (0-5); Hematocrit 41.3 % (37-47); Hemoglobin 13.7 g/dL (12.0-15.0); Mean Corp Hgb Conc 33.2 g/dL (32-36); Mean Corpuscular Hgb 30.9 pg (27.0-32.0); Mean Platelet Vol. 10.7 fl (6.2-12.0); Monocyte# 0.55 X10^3/uL; Monocyte% 9.5 % (0-10); NRBC Flagged by Analyzer 0 % (0-5); Neutrophil # 3.55 X10^3/uL (2.7-7.7); Neutrophil % 61.5 % (47-70); Platelet Count 201 K/mm3 (150-450); RBC Distribution Width CV 13.3 % (11.6-14.6); RBC Distribution Width SD 45.4 fl (35.1-43.9); Red Blood Count 4.44 M/mm3 (4.2-5.4); White Blood Count 5.8 K/mm3 (4.4-11.0)
[2019-09-29 12:04] LABS: HIV - WCH Non-Reactive (Nonreactive); Hepatitis B Surface Antigen Non-Reactive (Nonreactive); Hepatitis C Antibody Non-Reactive (Nonreactive); Rubella IgG 82.8 IU/mL
[2019-09-29 12:27] LABS: NATERA MAILED SPECIMEN
[2019-10-01 03:38] LABS: Rapid Plasmin Reagin (RPR) NONREACTIVE (NONREACTIVE)
== END ==
PROVIDERS: Obstetrics & Gynecology; PCP Family Medicine; Referring Provider Nurse Practitioner Women's Health; Visit Provider Nurse Practitioner Women's Health
DX: Z34.81 Encounter for supervision of other normal pregnancy, first trimester (principal)
CPT/HCPCS: 36415; 85025; 86592; 86703; 86762; 86803; 86850; 86900; 86901; 87340

== ENCOUNTER → 2019-12-01 08:08 | Outpatient (CLI) | payer OTHER, SELFPAY ==
[2019-11-09 13:35] VITALS: BMI 27.2
== END ==
PROVIDERS: PCP Family Medicine; Referring Provider Obstetrics & Gynecology; Visit Provider Obstetrics & Gynecology
DX: Z34.90 Encounter for supervision of normal pregnancy, unspecified, unspecified trimester (principal)
CPT/HCPCS: 36415

== ENCOUNTER → 2020-02-04 09:25 | Outpatient (CLI) | payer OTHER, SELFPAY ==
[2020-01-08 15:13] VITALS: BMI 27.2
== END ==
PROVIDERS: PCP Family Medicine; Referring Provider Obstetrics & Gynecology; Visit Provider Obstetrics & Gynecology
DX: Z11.59 Encounter for screening for other viral diseases (principal)
CPT/HCPCS: 87635; C9803; U0003

== ENCOUNTER → 2020-03-30 16:16 | Outpatient (CLI) | payer OTHER, SELFPAY ==
[2020-03-30 13:43] VITALS: BMI 25.4
== END ==
PROVIDERS: PCP Family Medicine; Visit Provider Obstetrics & Gynecology
DX: Z34.90 Encounter for supervision of normal pregnancy, unspecified, unspecified trimester (principal)
CPT/HCPCS: 87077; 87081; 87186

== ENCOUNTER → 2020-04-08 18:09 | Outpatient (CLI) | payer OTHER, SELFPAY ==
[2020-03-30 13:43] VITALS: BMI 25.4
== END ==
PROVIDERS: Nurse Practitioner Women's Health; PCP Family Medicine; Referring Provider Obstetrics & Gynecology; Visit Provider Obstetrics & Gynecology
DX: Z20.828 Contact with and (suspected) exposure to other viral communicable diseases (principal)
CPT/HCPCS: 87635; C9803; U0003

== ENCOUNTER 2020-04-10 08:45 | Outpatient (CLI) | payer OTHER, SELFPAY ==
[2020-03-30 13:43] VITALS: BMI 25.4
[2020-04-10 08:59] VITALS: BMI 25.2
[2020-04-10 09:00] VITALS: BP 123/61; PULSE 107; TEMP 36.4; O2SAT 98
--- NOTE | 2020-04-11 08:27 | OB.TRI.PN_ITS ---
Progress Notes Date of Service: 04/10/20 Progress Note: Patient presents for triage evaluation secondary to contractions and pelvic pressure. Cervix 2cm initially, but maru q4-5 min. No cervical change on 2 hour recheck. FHT: Moderate variability reactive no decelerations category I tracing [place]: Contractions q4-5 min Assessment and plan: Reactive NST, reassuring maternal and status. Discussed likely in early phases of labor. Strict return precautions reviewed. Patient discharged to home to follow-up at next scheduled office visit. See problem list details for additional plan information. Multi Select Codes - Urinary/Genital Urinary/Genital CPT Codes: 50139-26 non-stress test Interp
[2020-04-23 08:24] VITALS: BP 114/73; PULSE 83
[2020-04-23 08:25] VITALS: PULSE 77; O2SAT 98
== END 2020-04-10 12:00 | disposition home or self-care (01) ==
LOC: WPOUT 08:58 → WP 08:58
PROVIDERS: PCP Family Medicine; Visit Provider Obstetrics & Gynecology
DX: O62.9 Abnormality of forces of labor, unspecified (principal); Z3A.00 Weeks of gestation of pregnancy not specified
CPT/HCPCS: 59025; 59050; 99218; G0378

== ENCOUNTER 2020-04-23 08:30 | Inpatient (IN) | payer OTHER, SELFPAY ==
[2020-04-22 15:06] VITALS: BMI 24.0
[2020-04-23] VITALS (61 sets, daily range): BP systolic 99–163; BP diastolic 51–89; PULSE 46–81; RESP 18; TEMP 36.3–37.3; O2SAT 82–100; BMI 25.3
[2020-04-23] MEDS: Lactated Ringers 500 ML 999 ML IV ×2 (08:55→12:37)
--- NOTE | 2020-04-23 08:58 | HP.PCM_ITS ---
- Problem List (1) Active labor at term Status: Acute (2) 35 weeks gestation of Status: Acute Comment: electronic covid test ordered 03/23/2020sc (scheduled for 04/22/20 at 1630) (3) Anxiety Status: Acute Comment: lexapro, counseling encouraged (4) Positive GBS test Status: Acute Comment: Vanc in labor (5) Status: Acute Qualifiers: Comment: declines carrier. NIPT low risk. AFP normal, anatomy normal (6) Supervision of normal Status: Acute Qualifiers: Comment: PRR CATRINA: 04/24/20 girl Beka PC: Dontae Spouse: Adair History and Physical Date of Admission: 04/23/20 Intake Vital Signs 04/22/20 Height 5 ft 4 in 04/22/20 Weight: 140 lb 04/22/20 BMI 24.0 04/22/20 BP 124/78 H Intake Visit Reasons: 39 WK OB Overlay Plastician Required: No Is patient in pain?: No Allergies amoxicillin Allergy (Verified 04/22/20 15:06) Angioedema Medications Pnv,Calcium 72/Iron/Folic Acid [ Plus Tablet] 1 ea PO DAILY 08/20/17 [History Confirmed 04/22/20] Escitalopram Oxalate 20 mg PO DAILY 04/10/20 [History Confirmed 04/22/20] Last Menstral Period: 07/12/19 Zika: Zika virus screening: Negative : No PFSH PFSH Medical History Infertility (Acute) Uterine perforation (Acute) Surgical History History of hysteroscopy (Acute) Family History Father Cancer Social History (Updated 04/22/20 @ 15:[address] 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 Date Name GA/Weeks Outcome Route Bth Weight Gen Labor Lgth Anesthesia Del Locatn Provider FOB 08/27/18 Luke 39 live - full term vacuum 5lbs 9o z Male epidural [facility] Dr. Poole Delivery Date: 08/27/18 3 grade laceration Shandra Shah HPI 39 WK OB: Details: HERRERA BARRY is a 24 year old @ 39w6d presents in labor with regular ctx. no vb lof good fm OB Visit CATRINA Calculator Estimated Delivery Date Method Current WG Current Estimate 04/24/20 Ultrasound #1 39w 5d Other Estimates 05/02/20 LMP (Uncertain) 38w 4d Expected Delivery Route/Plan Labor Preferences- labor support person: Adair pain management options preferred: epidural labor preferences: open to standard interventions cut cord/dad catch: cord : yes PP control planned: declines discussed possible routes of delivery and associated risks: discussed possible delivery modalities and possible indications for each including R/B/A of , VAVD, FAVD, and CS. questions answered. special requests: none Specific Issue/Plans flu vaccine: declines tdap vaccine: given rhogam: na LARC form signed: declined Problem list reviewed and updated with the most current plan of care details and appropriate orders placed. Relevant counseling for the gestational age provided. Continue routine care and follow up unless otherwise noted in visit notes/problem list details Initial Weight: 118 lb Date EGA Weight BP Urine Prot Glucose FHR FuHt Pres Dilation Effaced St Visit Note 10/07/19 11w 3d 118 lb (+0 oz) 100/70 Negative Negative 180 MH-No VB, LOF. Brief US confirm FHT. 11/09/19 16w 1d 119 lb 8 oz (+1 lb 8 oz) 100/70 Negative Negative 160 SM- no vb lof good fm 12/10/19 20w 4d 124 lb (+6 lb) 118/72 Negative Negative 160 SM- no vb lof good fm no regular ctx 01/08/20 24w 5d 129 lb 8 oz (+11 lb 8 oz) 102/50 Negative Negative 160 SM- started school. no vb lof good fm no regular ctx. first grade in [place]- [place] 02/09/20 29w 2d 133 lb (+15 lb) 104/72 145 SM- no vb lof good fm no regular ctx discussed some increased anxiety symptoms. discussed increasing lexpapro if needed, encouraged counseling 02/26/20 31w 5d 136 lb 6 oz (+18 lb 6 oz) 118/62 Negative Negative 135 31 GP - no LOF, VB, DFM, ctx. BGTs reviewed - all wnl. Discussed medications for sleep. Discussed concerns about vaginal delivery after last delivery experience. 03/08/20 33w 2d 140 lb (+22 lb) 94/70 Negative Negative 135 33 SM- no vb lof good fm no regular ctx doing better mood canela 03/22/20 35w 2d 139 lb (+21 lb) 102/60 Negative Negative 140 35 Cephalic SM- no vb lof good fm no regular ctx 03/30/20 36w 3d 139 lb (+21 lb) 100/60 Negative Negative 140 36 Cephalic 1 50 -2 GP - no LOF, VB, DFM, ctx . Discussed labor preferences and routes of delivery. GBS collected. 04/08/20 37w 5d 122/74 Negative Negative 120 37 Cephalic 1 60 -2 GP -no LOF, VB, DFM, regu lar ctx. 04/15/20 38w 5d 138 lb (+20 lb) 120/72 Negative Negative 130 38 Cephalic 2 60 -2 SM- no vb lof good fm no reuglar ctx but irritability at night 04/22/20 39w 5d 140 lb (+22 lb) 124/78 Negative Negative 130 39 Cephalic 3 60 -2 GP - no LOF, VB, DFM, ctx . Membranes swept today. Diagnostics Diagnostics Details: HIV: Urine Culture: Sequential Screen: NIPT Screen: ROS Const Reports system reviewed and no additional complaints, except as docu Eyes Reports system reviewed and no additional complaints, except as docu ENT Reports system reviewed and no additional complaints, except as docu Card Reports system reviewed and no additional complaints, except as docu Resp Reports system reviewed and no additional complaints, except as docu GI Reports system reviewed and no additional complaints, except as docu Reports system reviewed and no additional complaints, except as docu, Denies abnormal vaginal bleeding, Denies painful urination, Denies pelvic pain, Denies vaginal discharge, Denies vaginal odor, Denies vaginal itching Musc Reports system reviewed and no additional complaints, except as docu Skin/Breast Reports system reviewed and no additional complaints, except as docu Neuro Yes system reviewed and no additional complaints, except as docu Psych Reports system reviewed and no additional complaints, except as docu Exam Const General: cooperative, healthy appearing, comfortable, no acute distress, well developed, well groomed Nutritional Appearance: average body habitus, well nourished Orientation: alert, awake, oriented x3 HENMT Head: normal to inspection, normocephalic, atraumatic Eyes Pupils: PERRL, accommodation normal Resp Effort & Inspection: normal respiratory effort, able to speak in complete sentences, symmetric chest movement Cardio Rate: regular rate GI Palpation: soft, no guarding, no masses, nontender Skin General: no rashes or lesions noted, elasticity normal, turgor normal Neuro General: alert, awake, oriented x3 Cranial Nerves: CN's II-XI intact bilaterally, sense of smell intact, PERRL, accommodation normal, EOM intact bilaterally Speech: speech normal Gait: normal gait Psych Appearance: grossly normal, well kempt Mental Status: mental status grossly normal Mood: congruent mood Affect: normal affect Speech and Movement: speech and movement normal Attitude: cooperative Thought Process: normal Thought Content: normal Judgment: judgment good Results POC Urinalysis 2 Dip (Clinic) Office Urine Glucose Negative Last Edit by Negar Cuevas on 04/22/20 15:12 Office Urine Protein Negative Last Edit by Negar Cuevas on 04/22/20 15:12 Assessment & Plan Problems 1. Positive GBS test B95.1 Vanc in labor 2. 35 weeks gestation of Z3A.35 electronic covid test ordered 03/23/2020sc (scheduled for 04/22/20 at 1630) 3. Anxiety F41.9 lexapro, counseling encouraged 4. Encounter for supervision of other normal in third trimester Z34.83 PRR CTARINA: 04/24/20 girl Beka PC: Dontae Spouse: Adair 5. 39 weeks gestation of Z3A.39 declines carrier. NIPT low risk. AFP normal, anatomy normal Patient presents IAL, plan expectant management for , pitocin/AROM PRN if needed. Pain management: plans epidural. GBS positive plan IV vancomycin. Management of any complications: none I have reviewed the [facility] and made any clinically relevant updates. Orders Orders: POC Urinalysis 2 Dip (Clinic) Today Coding Level of Care Code OB Routine Diagnoses Positive GBS test B95.1 35 weeks gestation of Z3A.35 Anxiety F41.9 Encounter for supervision of other normal in third trimester Z34.83 ??Normal : other normal ??Trimester: third trimester 39 weeks gestation of Z3A.39 ??Weeks of gestation: 39 weeks UPDATE- I have seen the patient and performed any clinically relevant updates to the history and physical exam. Samra Poole MD
[2020-04-23 09:06] LABS: Absolute Lymphocyte Count 1.46 X10^3/uL (0.83-4.51); Absolute Neutrophil Count 5.5 X10^3/uL (2.0-7.7); Basophil# 0.03 X10^3/uL; Basophil% 0.4 % (0-1); Eosinophil# 0.04 X10^3/uL; Eosinophils% 0.5 % (0-5); Hematocrit 40.7 % (37-47); Hemoglobin 13.8 g/dL (12.0-15.0); Lymphocyte # 1.46 X10^3/ul (4.0); Lymphocyte % 18.9 % (19-41); Mean Corp Hgb Conc 33.9 g/dL (32-36); Mean Corpuscular Hgb 31.1 pg (27.0-32.0); Mean Corpuscular Volume 91.7 fL (81-99); Mean Platelet Vol. 11.4 fl (6.2-12.0); Monocyte# 0.62 X10^3/uL; NRBC Flagged by Analyzer 0 % (0-5); Neutrophil # 5.53 X10^3/uL (2.7-7.7); Neutrophil % 71.8 % (47-70); Platelet Count 152 K/mm3 (150-450); RBC Distribution Width CV 12.4 % (11.6-14.6); RBC Distribution Width SD 41.4 fl (35.1-43.9); Red Blood Count 4.44 M/mm3 (4.2-5.4); White Blood Count 7.7 K/mm3 (4.4-11.0)
[2020-04-23] MEDS: Lactated Ringers 1,000 ML 200 ML IV (09:26)
[2020-04-23] MEDS: fentaNYL-bupivacaine (epidural) 100 ML BAG EPIDURAL (10:07)
--- NOTE | 2020-04-23 11:21 | PCM.PN.BLA ---
Progress Note Rupture membranes well checking cervix clear fluid copious amounts. current tracing: FHT: 120 moderate variability reactive single 3-1/2-minute prolonged deceleration after rupture membranes with copious amounts of fluid with good recovery category II tracing [place]: Every 2 to 4 contractions reviewed tracing abnormalities since last note: See above A/P: Status post epidural SROM 6 cm continue expectant management now after rupture of membranes. Position changes resolved prolonged deceleration STROKE Vital Signs/Narrative: Vital Signs Temp Pulse BP Pulse Ox 04/23/20 11:14 71 111/55 L 98 04/23/20 11:11 74 91 04/23/20 11:09 63 100 04/23/20 11:08 63 123/60 H 04/23/20 11:04 65 98 04/23/20 11:03 66 111/62 04/23/20 10:59 78 123/58 H 98 04/23/20 10:54 64 116/59 L 99 04/23/20 10:49 68 99 04/23/20 10:48 63 118/70 04/23/20 10:44 74 100 04/23/20 10:43 71 127/72 H 04/23/20 10:39 66 99 04/23/20 10:38 67 107/66 04/23/20 10:34 61 99 04/23/20 10:33 61 108/63 04/23/20 10:29 74 98 04/23/20 10:28 81 119/69 04/23/20 10:25 67 121/71 H 04/23/20 10:24 68 99 04/23/20 10:23 73 126/75 H 04/23/20 10:19 80 99 04/23/20 10:18 80 123/73 H 04/23/20 10:14 79 99 04/23/20 10:13 72 110/69 91 04/23/20 10:09 68 99 04/23/20 10:05 73 94 04/23/20 10:04 65 132/83 H 100 04/23/20 08:24 98.6 F 98
[2020-04-23] MEDS: Ondansetron 4 MG/2 ML Vial IV (13:22)
[2020-04-23] MEDS: Oxytocin 30 units/NS 500 ml 30 UNITS/500 ML IV.SOLN 334 UNITS IV (13:42)
--- NOTE | 2020-04-23 13:58 | PCM.OPRPT ---
Problem List (1) Active labor at term Status: Acute (2) 35 weeks gestation of Status: Acute Comment: electronic covid test ordered 03/23/2020sc (scheduled for 04/22/20 at 1630) (3) Anxiety Status: Acute Comment: lexapro, counseling encouraged (4) Positive GBS test Status: Acute Comment: Vanc in labor (5) Status: Acute Qualifiers: Comment: declines carrier. NIPT low risk. AFP normal, anatomy normal (6) Supervision of normal Status: Acute Qualifiers: Comment: PRR CATRINA: 04/24/20 girl Beka PC: Dontae Spouse: Adair Vaginal Delivery Maternal Presentation: Active Labor ial 39w6d Amniotic Membrane Rupture Type: Spontaneous Amniotic Fluid Description: Clear Final CATRINA: 04/24/20 Gestational age: 39 Weeks and 6 Days Date of Procedure: 04/23/20 Pre-Operative Diagnosis: ial Post-Operative Diagnosis: same Surgery/ Procedure Performed: Spontaneous Vaginal Delivery Type of Anesthesia: Epidural Description of Procedure: Patient began pushing and delivered the head in the REBECA presentation. The head was delivered atraumatically. The anterior and posterior shoulders delivered without complication followed by the rest of the and the infant was placed on the maternal abdomen. Delayed cord clamping was employed for approximately 60 seconds. Cord was clamped and cut and gentle traction was applied to the cord and the placenta delivered spontaneously immediately following it was noted to be intact with three-vessel cord. The perineum and vagina were inspected and noted to have a second-degree perineal laceration that was repaired in the usual fashion with 3-0 Vicryl repeat. EBL was 100 cc. Patient and tolerated delivery well. Presentation: REBECA Placental Delivery Description: Spontaneous Placenta Disposition: [facility] Cord Vessel Description: 3 Vessels Cord Entanglement: None Estimated Blood Loss: 100 Infant A gender: Female Episiotomy Description: None Laceration: Perineal Extension/lac, 2nd degree Medications given after delivery: IV Pitocin Complications: None Multi Select Codes - Urinary/Genital Urinary/Genital CPT Codes: 77622 Vaginal Delivery [facility]
[2020-04-23] MEDS: 0.9% Saline Lock 10 ML Syringe IV (16:36)
[2020-04-23] MEDS: Naproxen 250 MG Tablet 500 MG PO (16:38)
[2020-04-23] MEDS: Acetaminophen 500 MG Tablet 1000 MG PO (19:56)
[2020-04-24 00:46] VITALS: BP 117/70; PULSE 60; RESP 18; TEMP 36.8
[2020-04-24 04:55] VITALS: BP 105/66; PULSE 59; RESP 18; TEMP 36.6
[2020-04-24 09:14] VITALS: BP 109/68; PULSE 80; RESP 16; TEMP 36.9; O2SAT 98
--- NOTE | 2020-04-24 11:49 | PCM.PN.OB ---
Patient Problems: Active and Suspected Problems (Last Reviewed 04/22/20 @ 15:06 by Negar Cuevas) Active labor at term (Acute) Positive GBS test (Acute) Vanc in labor 35 weeks gestation of (Acute) electronic covid test ordered 03/23/2020sc (scheduled for 04/22/20 at 1630) Anxiety (Acute) lexapro, counseling encouraged Supervision of normal (Acute) PRR CATRINA: 04/24/20 girl Beka PC: Dontae Spouse: Adair (Acute) declines carrier. NIPT low risk. AFP normal, anatomy normal Subjective: Patient doing well without complaints. Tolerating PO. Ambulating and voiding without difficulty. feeding well. Denies chest pain, shortness of breath, calf pain/swelling, fevers, chills, lightheadedness. - Physical Exam Vitals/I&O's: Vital Signs Temp Pulse Resp BP Pulse Ox 98.4 F 80 16 109/68 98 04/24/20 09:14 04/24/20 09:14 04/24/20 09:14 04/24/20 09:14 04/24/20 09:14 Oxygen Delivery Method Room Air Weight: 138 lb 7.205 oz Body Mass Index (BMI) 25.3 Intake and Output for Last 24 Hours 04/22/20 04/23/20 04/24/20 23:59 23:59 23:59 Intake Total 3024.99 / 3024.99 Output Total 1525 / 1525 Balance 1499.99 / 1499.99 General: Alert, Oriented x3 Microbiology Past 72 Hours 04/23/20 09:15 Mucosa - Nose SARS-CoV-2 Antigen (Rapid) - Final Current Medications Acetaminophen (Acetaminophen 500 Mg Tablet) 1,000 mg PO Q8H PRN PRN PRN Reason: Pain Score 1-3 Last Admin: 04/23/20 19:56 Dose: 1,000 mg Documented by: Bisacodyl (Bisacodyl 10 Mg Suppository) 10 mg RECTAL UD PRN PRN Reason: If no BM Dibucaine (Dibucaine 30 Gm Tube) 1 applic TOPICAL TID PRN PRN; Protocol PRN Reason: Discomfort Hydrocortisone (Hydrocortisone 2.5% Crm) 1 applic TOPICAL TID PRN PRN; Protocol PRN Reason: Discomfort Methylergonovine Maleate (Methylergonovine 0.2 Mg/Ml Ampul) 0.2 mg IM X1 PRN PRN Reason: Excess bleeding/uterine atony Naproxen (Naproxen 250 Mg Tablet) 500 mg PO Q8H PRN PRN PRN Reason: Pain Score 1-3 Last Admin: 04/23/20 16:38 Dose: 500 mg Documented by: Ondansetron HCl (Ondansetron 4 Mg/2 Ml Vial) 4 mg IV Q4H PRN PRN PRN Reason: Nausea Oxycodone HCl (Oxycodone 5 Mg Tablet) 5 - 10 mg PO Q4H PRN PRN PRN Reason: Pain Score 4-10 Senna/Docusate Sodium (Senna/Docusate Sodium 1 Tablet) 1 - 2 tablet PO DAILY PRN PRN PRN Reason: Constipation Simethicone (Simethicone 80 Mg Tablet) 80 mg PO PCHS PRN PRN Reason: Indigestion/Stomach pain Sodium Chloride (0.9% Saline Lock 10 Ml Syringe) 5 - 15 ml IV UD PRN PRN Reason: SALINE FLUSH Last Admin: 04/23/20 16:36 Dose: 10 ml Documented by: Medical Necessity - Tobacco Use Smoking Status: Never smoker Assessment/Plan All Active Problems (Last Reviewed 04/22/20 @ 15:06 by Negar Cuevas) Active labor at term (Acute) Positive GBS test (Acute) 35 weeks gestation of (Acute) Anxiety (Acute) Supervision of normal (Acute) (Acute) Supervision of other normal (Resolved) s/p PPD # 1 1. routine post delivery care 2. breast feeding- support given 3. rh positive 4. rubella immune
[2020-04-24 14:00] VITALS: BP 116/76; PULSE 63; RESP 16; TEMP 36.6; O2SAT 96
[2020-04-24 20:54] VITALS: BP 121/71; PULSE 62; RESP 16; TEMP 36.4
[2020-04-25 01:35] VITALS: BP 116/67; PULSE 62; RESP 16; TEMP 36.3
--- NOTE | 2020-04-25 07:42 | PCM.PN.OB ---
Patient Problems: Active and Suspected Problems (Last Reviewed 04/22/20 @ 15:06 by Negar Cuevas) Active labor at term (Acute) Positive GBS test (Acute) Vanc in labor 35 weeks gestation of (Acute) electronic covid test ordered 03/23/2020sc (scheduled for 04/22/20 at 1630) Anxiety (Acute) lexapro, counseling encouraged Supervision of normal (Acute) PRR CATRINA: 04/24/20 girl Beka PC: Dontae Spouse: Adair (Acute) declines carrier. NIPT low risk. AFP normal, anatomy normal Subjective: Patient doing well without complaints. Tolerating PO. Ambulating and voiding without difficulty. feeding well. Denies chest pain, shortness of breath, calf pain/swelling, fevers, chills, lightheadedness. - Physical Exam Vitals/I&O's: Vital Signs Temp Pulse Resp BP Pulse Ox 97.3 F L 62 16 116/67 96 04/25/20 01:35 04/25/20 01:35 04/25/20 01:35 04/25/20 01:35 04/24/20 14:00 Oxygen Delivery Method Room Air Weight: 138 lb 7.205 oz Body Mass Index (BMI) 25.3 Intake and Output for Last 24 Hours 04/23/20 04/24/20 04/25/20 23:59 23:59 23:59 Intake Total 3024.99 / 3024.99 Output Total 1525 / 1525 Balance 1499.99 / 1499.99 General: Alert, Oriented x3 Microbiology Past 72 Hours 04/23/20 09:15 Mucosa - Nose SARS-CoV-2 Antigen (Rapid) - Final Current Medications Acetaminophen (Acetaminophen 500 Mg Tablet) 1,000 mg PO Q8H PRN PRN PRN Reason: Pain Score 1-3 Last Admin: 04/23/20 19:56 Dose: 1,000 mg Documented by: Bisacodyl (Bisacodyl 10 Mg Suppository) 10 mg RECTAL UD PRN PRN Reason: If no BM Dibucaine (Dibucaine 30 Gm Tube) 1 applic TOPICAL TID PRN PRN; Protocol PRN Reason: Discomfort Hydrocortisone (Hydrocortisone 2.5% Crm) 1 applic TOPICAL TID PRN PRN; Protocol PRN Reason: Discomfort Methylergonovine Maleate (Methylergonovine 0.2 Mg/Ml Ampul) 0.2 mg IM X1 PRN PRN Reason: Excess bleeding/uterine atony Naproxen (Naproxen 250 Mg Tablet) 500 mg PO Q8H PRN PRN PRN Reason: Pain Score 1-3 Last Admin: 04/23/20 16:38 Dose: 500 mg Documented by: Ondansetron HCl (Ondansetron 4 Mg/2 Ml Vial) 4 mg IV Q4H PRN PRN PRN Reason: Nausea Oxycodone HCl (Oxycodone 5 Mg Tablet) 5 - 10 mg PO Q4H PRN PRN PRN Reason: Pain Score 4-10 Senna/Docusate Sodium (Senna/Docusate Sodium 1 Tablet) 1 - 2 tablet PO DAILY PRN PRN PRN Reason: Constipation Simethicone (Simethicone 80 Mg Tablet) 80 mg PO PCHS PRN PRN Reason: Indigestion/Stomach pain Sodium Chloride (0.9% Saline Lock 10 Ml Syringe) 5 - 15 ml IV UD PRN PRN Reason: SALINE FLUSH Last Admin: 04/23/20 16:36 Dose: 10 ml Documented by: Medical Necessity - Tobacco Use Smoking Status: Never smoker Assessment/Plan All Active Problems (Last Reviewed 04/22/20 @ 15:06 by Negar Cuevas) Active labor at term (Acute) Positive GBS test (Acute) 35 weeks gestation of (Acute) Anxiety (Acute) Supervision of normal (Acute) (Acute) Supervision of other normal (Resolved) s/p PPD # 2 1. routine post delivery care 2. breast feeding- support given 3. rh positive 4. rubella immune
--- NOTE | 2020-04-25 07:47 | DCINST_ITS ---
Discharge Diet: No Restrictions Discharge Activity: Return to Normal Activity, May not drive while taking narcotic pain medications., May Shower May resume sexual activity in: 4-6 weeks Call your doctor if your incision/area has: Continuous Slow Oozing, Sudden Increased Bleeding, Increased Pain/ Swelling, Increased Redness, Foul Smelling Discharge Additional Instructions: If you experience any of the following, contact your healthcare provider. * Bleeding that soaks a pad every hour for 2 hours * Fever 100.4 or higher * Unrelieved incision or abdominal pain * Swelling, redness, discharge or bleeding from your incision or episiotomy site * Your incision begins to separate * Problems urinating (including inability to urinate or burning while urinating). * Visual changes * Severe headache * Flu-like symptoms * Pain or redness in one of both of your breasts * Pain, warmth, tenderness or swelling in your legs, especially the calf area * Frequent nausea and vomiting * Symptoms of depression or anxiety If you experience any of the following, call 911 or go to the nearest Emergency Room. * Chest pain * Problems breathing * Seizure activity * Partial or complete paralysis of a body part, slurred speech, weakness or drooping of the face, or a sudden inability to walk or hold your balance Allergies/Adverse Reactions: Allergies amoxicillin Allergy (Verified 04/23/20 08:34) Angioedema Medications to take at Discharge Pnv,Calcium 72/Iron/Folic Acid [ Plus Tablet] 1 ea PO DAILY 08/20/17 Escitalopram Oxalate 20 mg PO DAILY 04/10/20 Please Follow Up With: Samra Poole MD - [phone] When: Call to make an appointment with your doctor in 6 weeks. If you had elevated Blood pressure or 4th degree laceration you will need to be seen in 2 weeks. Primary Care Physician: Andrew Lainez MD [Primary Care Provider] - Test Results: Test results from this visit will be discussed in further detail at your follow- up appointment, if applicable.
--- NOTE | 2020-04-25 07:47 | PCM.DCVAG ---
Discharge Diet: No Restrictions Discharge Activity: Return to Normal Activity, May not drive while taking narcotic pain medications., May Shower May resume sexual activity in: 4-6 weeks Call your doctor if your incision/area has: Continuous Slow Oozing, Sudden Increased Bleeding, Increased Pain/ Swelling, Increased Redness, Foul Smelling Discharge Additional Instructions: If you experience any of the following, contact your healthcare provider. Bleeding that soaks a pad every hour for 2 hours Fever 100.4 or higher Unrelieved incision or abdominal pain Swelling, redness, discharge or bleeding from your incision or episiotomy site Your incision begins to separate Problems urinating (including inability to urinate or burning while urinating). Visual changes Severe headache Flu-like symptoms Pain or redness in one of both of your breasts Pain, warmth, tenderness or swelling in your legs, especially the calf area Frequent nausea and vomiting Symptoms of depression or anxiety If you experience any of the following, call 911 or go to the nearest Emergency Room. Chest pain Problems breathing Seizure activity Partial or complete paralysis of a body part, slurred speech, weakness or drooping of the face, or a sudden inability to walk or hold your balance Allergies/Adverse Reactions: Allergies amoxicillin Allergy (Verified 04/23/20 08:34) Angioedema Medications to take at Discharge Pnv,Calcium 72/Iron/Folic Acid [ Plus Tablet] 1 ea PO DAILY 08/20/17 Escitalopram Oxalate 20 mg PO DAILY 04/10/20 Please Follow Up With: Samra Poole MD - [phone] When: Call to make an appointment with your doctor in 6 weeks. If you had elevated Blood pressure or 4th degree laceration you will need to be seen in 2 weeks. Primary Care Physician: Andrew Lainez MD [Primary Care Provider] - Test Results: Test results from this visit will be discussed in further detail at your follow-up appointment, if applicable.
--- NOTE | 2020-04-25 07:53 | NURSING ---
Called [employer] and left a message to ask if they can see patient as soon as possible this morning due to patient wanting to go to hotel status and also high anxiety.
[2020-04-25 08:09] VITALS: BP 114/73; PULSE 76; RESP 16; TEMP 36.6; O2SAT 97
--- NOTE | 2020-04-25 11:30 | CASEMGMT ---
Social Work Brief Assessment Labor and Delivery Unit Refer documentation below for further details. Date of Referral/Notification: 04/25/2020 Time of Referral: 03:34 Referred By: Zulema Reason for Referral: MOB with history of anxiety Date of Intervention: 04/25/2020 Time of Intervention: 11:30a Informant: Medical record and mother of baby (MOB) Assessment: Met with MOB and FOB in room. Introduced role and reason for referral. MOB open to speaking with this worker. MOB and FOB report have been for 3.5 years. MOB reports has a [id number] son, Dontae at home. MOB openly discussed anxiety and states has been following with psych- Dr. Pérez for about 9 weeks. MOB reports appointments with Dr. Pérez are once a week and has been started on Lexapro. MOB states has a lot of social stress with having to work full-time as she was used to job sharing with co-worker. MOB states ?I was just extremely sensitive during my last trimester. Things that didn?t bother me before did.? MOB states good support from and family. MOB states she is looking forward to home going. MOB to be made hotel status until baby girlSabrina passes car seat challenge. MOB states will be leaving hospital briefly to see her son. MOB reports FOB to stay with baby. MOB provided with resources for PPD. MOB denies any questions or concerns. Nursing updated on this worker?s assessment. Plan: Home with resources provided No further needs requested or indicated
== END 2020-04-25 11:30 | disposition home or self-care (01) | DRG 807 ==
LOC: WP 08:30 → WPOUT 08:36 → WP 08:36
PROVIDERS: Admitting Provider Obstetrics & Gynecology; PCP Family Medicine; Referring Provider Obstetrics & Gynecology; Visit Provider Obstetrics & Gynecology
DX: O99.344 Other mental disorders complicating childbirth (principal); Z37.0 Single live birth; F41.9 Anxiety disorder, unspecified; Z3A.39 39 weeks gestation of pregnancy; O99.824 Streptococcus B carrier state complicating childbirth; O76 Abnormality in fetal heart rate and rhythm complicating labor and delivery; O70.1 Second degree perineal laceration during delivery
CPT/HCPCS: 59025; 59050; 85025; 86850; 86900; 86901; 87426; 99218; J7050; J7120; A4216; G0378; J2405

== ENCOUNTER → 2023-05-10 | Outpatient (CLI) | payer OTHER, SELFPAY ==
--- OUTSIDE RECORDS SUMMARY | 2023-05-10 16:57 | XMS RPT_ITS | CCD ---
Author Name Unknown Address [id number] [place] [address] Organization [facility] Care Team Providers Care Residential Roofer Name Role Phone Nicolle CONVENTIONAL MORTGAGE UNDERWRITER, Deana Reece Unavailable Samra Poole MD Unavailable [phone] THELMA WILL Unavailable Unavailable PROVIDER, UNKNOWN Unavailable Unavailable Destiny Lainez Unavailable Unavailable Patricia Rosalse Unavailable Unavailab RYAN Bender Admitting RYAN [place] Attending DESTINY Valentine Primary Care Unavail RAYMOND Muse NP Admitting RAYMOND Lagunas NP Attending Lorrainea DESTINY Eason Primary Care Unavail Destiny Choi MD Primary Care Provider JESSE SANTOS Attending DESTINY Velez Primary Care Unavail able Allergies Allergy Classification Reported Allergen(s) Allergy Type Date of Onset Reaction(s) Facility (17 sources) amoxicillin; Translations: [AMOXICILLIN] drug allergy 11-09-2011 [facility] (1 source) Amoxicillin Drug Allergy [facility] Repository Medications Completed/Discontinued Medications Medication Drug Class(es) Dates Sig (Normalized) Sig (Original) ascorbic acid,sod/zinc ox,gluc (ZINC AND C ORAL) (3 sources) End: 08-21-2021 ascorbic acid,sod/zinc ox,gluc (ZINC AND C ORAL) Take by mouth. 0 08/21/2021 Discontinued (Course of therapy completed) Problems Active Problems Problem Classification Problem Date Documented Da te Episodic/Chronic Allergic reactions (1 source) Allergy status to penicillin; Translations: [ALLERGY STATUS TO PENICILLIN] Onset: 06-30-2019 Episodic Anxiety disorders (17 sources) Anxiety; Translations: [Anxiety disorder, unspecified] Onset: 11-27-2016 11-27-2016 Chronic Genitourinary congenital anomalies (1 source) Other congenital malformations of uterus; Translations: [OTH CONGENITAL MALFORMATIONS UTERUS] Onset: 06-30-2019 Chronic Menstrual disorders (8 sources) Irregular periods; Translations: [Irregular menstruation, unspecified] Onset: 11-28-2016 11-28-2016 Chronic Open wounds of extremities (2 sources) Laceration without foreign body of right middle finger without damage to nail, initial encounter; Translations: [Laceration without foreign body of right middle finger without damage to nail, initial encounter] Onset: 01-02-2023 Episodic Other aftercare (1 source) Other shelter (current) drug therapy; Translations: [OTH HEAD OF HUMAN RESOURCES CURRENT DRUG THERAPY] Onset: 06-30-2019 Episodic Other endocrine disorders (1 source) Hypoglycemia, unspecified; Translations: [HYPOGLYCEMIA UNSPECIFIED] Onset: 06-30-2019 Chronic Other female genital disorders (1 source) Polyp of corpus uteri; Translations: [POLYP OF CORPUS UTERI] Onset: 06-30-2019 Episodic Other gastrointestinal disorders (16 sources) Irritable bowel syndrome; Translations: [Mixed irritable bowel syndrome] Onset: 11-27-2016 11-27-2016 Chronic Other screening for suspected conditions (not mental disorders or infectious disease) (2 sources) Patient encounter status; Translations: [Encounter for other specified screening] Episodic Residual codes; unclassified (1 source) Gestation period, 15 weeks; Translations: [15 weeks gestation of ] Episodic Residual codes; unclassified (1 source) Gestation period, 19 weeks; Translations: [19 weeks gestation of ] Episodic Residual codes; unclassified (2 sources) Gestation period, 22 weeks; Translations: [22 weeks gestation of ] Episodic Past or Other Problems Problem Classification Problem Date Documented Da te Episodic/Chronic Abdominal pain (7 sources) Abdominal pain; Translations: [Unspecified abdominal pain] Onset: 7 04-05-2017 Episodic Contraceptive and procreative management (2 sources) Encounter for fertility testing; Translations: [Encounter for fertility testing] Onset: 7 Episodic Other complications of (7 sources) Nausea and vomiting; Translations: [Vomiting of , unspecified] Onset: 2 05-18-2021 Episodic Other complications of (7 sources) History of third degree perineal laceration; Translations: [Supervision of with other poor reproductive or obstetric history, unspecified trimester] Onset: 2 05-18-2021 Episodic Other gastrointestinal disorders (16 sources) Disorder of gastrointestinal tract; Translations: [Other specified diseases of the digestive system] Onset: 7 11-27-2016 Episodic Other gastrointestinal disorders (7 sources) Functional diarrhea; Translations: [Functional diarrhea] Onset: 7 04-05-2017 Episodic Residual codes; unclassified (9 sources) H/O: Disorder; Translations: [Other specified personal risk factors, not elsewhere classified] Onset: 7 11-27-2016 Episodic Residual codes; unclassified (7 sources) Past history of procedure; Translations: [Other specified postprocedural states] Onset: 2 05-10-2021 Episodic Screening and history of mental health and substance abuse codes (14 sources) H/O: anorexia nervosa; Translations: [Personal history of other mental and behavioral disorders] Onset: 2 05-18-2021 Episodic Results Test Name Value Interpretation Reference Range Facil ity Vital Signs Date Time Vital Sign Value Performing Clinician Facility 08-21-2021 14:37-0400 Body weight 55.79 kg Kina Oneil CRYSTAL CALIBRATOR.CNM Work Phone: [facility] 08-21-2021 14:37-0400 Diastolic blood pressure 60 mm[Hg] Kina Plotts CRYSTAL CALIBRATOR.CNM Work Phone: [facility] 08-21-2021 14:37-0400 Systolic blood pressure 98 mm[Hg] Kina Plotts CRYSTAL CALIBRATOR.CNM Work Phone: [facility] 07-26-2021 13:43-0400 Body weight 54.88 kg Kina Corneliusts CRYSTAL CALIBRATOR.CNM Work Phone: [facility] 07-26-2021 13:43-0400 Diastolic blood pressure 60 mm[Hg] Kina Plotts CRYSTAL CALIBRATOR.CNM Work Phone: [facility] 07-26-2021 13:43-0400 Systolic blood pressure 96 mm[Hg] Kina Oneil SARAH Work Phone: [facility] 01-21-2017 14:29-0400 BMI (Body Mass Index) 20.48 kg/m2 Deana Valverde CONVENTIONAL MORTGAGE UNDERWRITER [facility] 01-21-2017 14:29-0400 Body Temperature 97.7 [degF] Deana Valverde CONVENTIONAL MORTGAGE UNDERWRITER [facility] 01-21-2017 14:29-0400 BP Diastolic 70 mm[Hg] Deana Valverde CONVENTIONAL MORTGAGE UNDERWRITER [facility] 01-21-2017 14:29-0400 BP Systolic 99 mm[Hg] Deana Valverde CONVENTIONAL MORTGAGE UNDERWRITER [facility] 01-21-2017 14:29-0400 Height 158.75 cm Deana Valverde CONVENTIONAL MORTGAGE UNDERWRITER [facility] 01-21-2017 14:29-0400 Pulse (Heart Rate) 65 /min Deana Valverde CONVENTIONAL MORTGAGE UNDERWRITER [facility] 01-21-2017 14:29-0400 Respiratory Rate 16 /min Deana Valverde CONVENTIONAL MORTGAGE UNDERWRITER [facility] 01-21-2017 14:29-0400 Weight 51.62 kg Deana Valverde CONVENTIONAL MORTGAGE UNDERWRITER [facility] 11-28-2016 14:32-0400 BMI (Body Mass Index) 20.85 kg/m2 Deana Valverde CONVENTIONAL MORTGAGE UNDERWRITER [facility] 11-28-2016 14:32-0400 Body Temperature 98.6 [degF] Deana Valverde CONVENTIONAL MORTGAGE UNDERWRITER [facility] 11-28-2016 14:32-0400 BP Diastolic 70 mm[Hg] Deana Valverde CONVENTIONAL MORTGAGE UNDERWRITER [facility] 11-28-2016 14:32-0400 BP Systolic 110 mm[Hg] Deana Valverde CONVENTIONAL MORTGAGE UNDERWRITER [facility] 11-28-2016 14:32-0400 Height 157.48 cm Deana Valverde CONVENTIONAL MORTGAGE UNDERWRITER [facility] 11-28-2016 14:32-0400 Pulse (Heart Rate) 57 /min Deana Valverde CONVENTIONAL MORTGAGE UNDERWRITER [facility] 11-28-2016 14:32-0400 Respiratory Rate 16 /min Deana [facility] 11-28-2016 14:32-0400 Weight 51.71 kg Deana Early [facility] Encounters Encounter Date Encounter Type Care Provider Facility Start: 01-02-2023 End: 01-02-2023 Emergency department patient visit JESSE AMOR [facility] Start: 09-25-2021 Telephone encounter Kina lozano CRYSTAL CALIBRATOR.SANDY Work Phone: OB/Gynecology Procedures Date Procedure Procedure Detail Performing Clinician Start: 09-11-2021 Us preg uterus after 1st trimest 05/06 gestation Kina Oneil CRYSTAL CALIBRATOR.CNM Work Phone: Start: 08-21-2021 Us preg uterus after 1st trimest 05/06 gestation Kina Oneil CRYSTAL CALIBRATOR.INDRAM Work Phone: Start: 08-21-2021 URINE OB DIP B/O Tanner Oneil CRYSTAL CALIBRATOR.SANDY Work Phone: Start: 07-26-2021 URINE OB DIP B/O Tanner Oneil CRYSTAL CALIBRATOR.CNKimberly Work Phone: Start: 06-23-2021 Antibody screen Plan of Treatment Date Care Activity Detail Author Start: 03-22-2030 Urine microalbumin profile DTAP,TDAP,TD (2 - Td or Tdap) [facility] Start: 05-22-2024 PAP TESTING PAP TESTING [facility] Start: 01-04-2022 Influenza vaccination INFLUENZ A (Season Ended) [facility] Start: 08-21-2021 End: 10-21-2021 ALPHA FETOPRO MATERNAL [facility] Work Phone: Immunizations Immunization Date Immunization Notes Care Provider Fa loc 03-22-2020 tetanus toxoid, redu saul diphtheria toxoid, and acellular pertussis vaccine, adsorbed Kina Oneil CRYSTAL CALIBRATOR.CNKimberly Work Phone: [facility] Work Phone: Payers Date Payer Category Payer Unknown MMO MMO [employer] [id number] 2018-Present [phone] [address] [place] [address] PPO [id number] 1993 Unknown [id number] 1993 Unknown [id number] 1993 Unknown [id number] 1959 Unknown [id number] Unknown Social History Date Type Detail Facility Start: 05-02-2016 Tobacco smoking stat [facility] Never smoked tobacco [facility] Start: 05-02-2016 Tobacco use and exposure Smokeless tobacco non-user [facility] Start: 07-26-2021 End: 08-21-2021 Alcohol intake Current non-drinker of alcohol (finding) [facility] Start: 05-18-2021 Education 17 [facility] Start: 04-21-2021 [facility] Start: 1995 Sex Assigned At Not on file [facility] Start: 08-11-2021 End: 09-12-2021 Exposure to SARS-CoV-2 (event) Not sure [facility] Work Phone: Clinical Notes 07-10-2019 to 10-17-2021 Telephone Encounter - Kina Oneil APRN.CNM - 10/17/2021 4:00 PM EDTTelephone Encounter - Cyndi Herrera RN - 10/17/2021 1:16 PM EDTTelephone Encounter - Dahlia Weir LPN - 10/09/2021 3:12 PM EDT Note Date & Type Note Facility 10-17-2021 Miscellaneous Notes Attempted for third time to reach patient via phone without success. She has stopped care here and is moving forward with a home . I wanted to discuss the option of co management throughout the remainder of her . Patient has not returned my calls. Will close out encounter at this time. Kina Oneil APRN.CNM Kina have you talked to this patient or should I try to reach her? Left voicemail for patient to return my call this week either on Saturday or in office. Kina Oneil APRN.CNM Please review message from last week. Dahlia Weir LPN Per CP she did not call patient yet, but plans to try when she has time. Soumya Mora RN Attempted to call and speak with patient regarding recent decision to have a home . Left message for patient to return my call at the office. Please keep open. Kina Oneil APRN.CNM documented in this encounter [facility] 08-22-2021 Miscellaneous Notes Follow-up Anatomy scheduled. Yahaira Mason RN Left message for patient to return phone call ----- Message from Kina Oneil APRN.CNM sent at 08/22/2021 9:07 AM EDT ----- Anatomy US reviewed. CSP, spine views were suboptimal. Repeat in 3 weeks. Order placed. Kina Oneil APRN.CNM documented in this encounter [facility] 08-21-2021 Miscellaneous Notes Herrera Barry is a 26 year old female who presents at 19w3d for a routine visit. Just completed anatomy US. Forgot to have AFP lab drawn last week. Having level drawn today. Just getting over stomach flu this past weekend had N/V/D. Starting to eat and drink more today and feeling better. Good movement. Denies headache, visual changes, chest pain, shortness of breath, vaginal bleeding, leakage of fluid, or dysuria. 13 lbsTWG. PTL/ Bleeding precautions reviewed. RTC in 4 weeks or sooner if needed. Kina Oneil APRN.CNM documented in this encounter [facility] 08-21-2021 Instructions Robyn Pate MA - 08/21/2021 2:14 PM EDT SEQUENTIAL SCREENINGS [facility] offers sequential screenings for women who are interested in screenings for chromosomal abnormalities and certain defects during a . The sequential screen combines ultrasound and blood tests to determine the risk of chromosomal abnormalities, including Down's Syndrome (Trisomy 21) and Trisomy 18, as well as open neural tube defects including spina bifida. Ultrasound examination is performed between 11 weeks and 13 weeks gestational age. Blood tests are drawn after the ultrasound and again later in the between 15 and 21 weeks gestational age. Please let your physician know if you are interested in this testing. It will require an appointment with our health care sanitary technician. This is not an ultrasound performed by a physician in our office during a routine visit. SIGNS AND SYMPTOMS OF LABOR 1. Contractions every 10 minutes or more often 2. Clear, pink, or brownish fluid (water) leaking from vagina 3. Feeling that baby is pushing down, pressure 4. Low, dull backache 5. Cramps that feel like a period 6. Cramps with or without diarrhea If you notice any of the above symptoms, contact our office at [phone] and ask to speak with a nurse. After hours, you can call doctors registry at [phone] OR call [facility] at [phone] and ask to have the doctor feed inspection supervisor paged. If you consider this an emergency, dial 01-04- or go to your nearest emergency department. NEED HELP? Are you dealing with a violent or abusive relationship? Are you a victim of rape or sexual assult? Call [facility] ([place]) 24 hour Crisis Hotline: 278.210.9616 or 544-867-0842. MANUAL Your Guide to a Healthy manual is now on-line. Visit [email or web address] to download your free copy documented in this encounter [facility] 07-26-2021 Miscellaneous Notes Herrera Barry is a 25 year old female who presents at 15w5d Estimated Date of Delivery: 01/12/22 for a routine visit. No movement to date. Denies headache, visual changes, chest pain, shortness of breath, vaginal bleeding, leakage of fluid, or dysuria. Feeling well, no complaints. Working out and has good appetite. Size equal to dates. 11lb TWG. Bleeding precautions reviewed. RTC in 4 weeks or sooner if needed. AFP and anatomy US at next visit. Kina Oneil APRN.CNM documented in this encounter [facility] 07-26-2021 Instructions Robyn Pate MA - 07/26/2021 1:40 PM EDT SEQUENTIAL SCREENINGS [facility] offers sequential screenings for women who are interested in screenings for chromosomal abnormalities and certain defects during a . The sequential screen combines ultrasound and blood tests to determine the risk of chromosomal abnormalities, including Down's Syndrome (Trisomy 21) and Trisomy 18, as well as open neural tube defects including spina bifida. Ultrasound examination is performed between 11 weeks and 13 weeks gestational age. Blood tests are drawn after the ultrasound and again later in the between 15 and 21 weeks gestational age. Please let your physician know if you are interested in this testing. It will require an appointment with our health care sanitary technician. This is not an ultrasound performed by a physician in our office during a routine visit. SIGNS AND SYMPTOMS OF LABOR 1. Contractions every 10 minutes or more often 2. Clear, pink, or brownish fluid (water) leaking from vagina 3. Feeling that baby is pushing down, pressure 4. Low, dull backache 5. Cramps that feel like a period 6. Cramps with or without diarrhea If you notice any of the above symptoms, contact our office at [phone] and ask to speak with a nurse. After hours, you can call doctors registry at [phone] OR call [facility] at [phone] and ask to have the doctor feed inspection supervisor paged. If you consider this an emergency, dial 7-1-5 or go to your nearest emergency department. NEED HELP? Are you dealing with a violent or abusive relationship? Are you a victim of rape or sexual assult? Call [facility] ([place]) 24 hour Crisis Hotline: 464.807.6372 or 022-588-3080. MANUAL Your Guide to a Healthy manual is now on-line. Visit [email or web address] to download your free copy documented in this encounter [facility] 05-22-2021 Note HNO ID: [id number] Author: Kina Oneil APRN.CNM Service: ? Author Type: Steam Fitter Supervisor Type: Progress Notes Filed: 05/22/2021 3:27 PM Note Text: INITIAL OB ASSESSMENT OB Provider: Kina Oneil APRN.CNM HPI: Herrera Barry is a 25 year old female here to establish Obstetrical Care. No LMP recorded (lmp unknown). Patient is . from OB Dating Form. No period since - IVF preg/ control regulated periods- Secondary amenorrhea. Complaints: nausea without vomiting was unplanned but accepted. OB History T2 L2 SAB1 IAB0 Ectopic0 Multiple0 Live Births2 Comment: Never SA Prior : never History of 4th degree laceration: No Patient's Risk Screening for delivery: No History of abnormal pap: No Prior treatment for cervical dysplasia: none. 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 Gender: male History of STDs: None PAST MEDICAL HISTORY Diagnosis Date - Anxiety - anxiety - Complication of anesthesia nausea - COVID-19 01/2021 - Gluten intolerance - History of anorexia nervosa - History of in vitro fertilization IVF with 1st in 2019 - History of maternal third degree perineal laceration, currently 2018- Vacuum delivery - Infertility, female - Irritable bowel - Kidney stone - Uterine perforation after hysteroscopy PAST SURGICAL HISTORY Procedure Laterality Date - EXTRACTION, ERUPTED TOOTH OR EXPOSED ROOT (ELEVATION AND/OR FORCEPS REMOVAL) - HYSTEROSCOPY, DIAGNOSTIC (SEPARATE x3 - IVF PACKAGE - TONSILLECTOMY HX 2012 Current Outpatient Medications on File Prior to Visit Medication Sig - multivitamin (CLASSIC ) 28 mg iron- 800 mcg tab(s) Take 1 tablet by mouth once daily. - ascorbic acid,sod/zinc ox,gluc (ZINC AND C ORAL) Take by mouth. - magnesium carb,citrate,oxide (MAGNESIUM COMPLEX ORAL) Take by mouth. - escitalopram oxalate (LEXAPRO) 10 mg tablet No current facility-administered medications on file prior to visit. Review of Systems: GENERAL: Negative for: Fever or Chills and Positive for: Fatigue HEENT: Negative for: Headache, Impaired Vision, Ringing in Ears, Nosebleeds NECK: Negative for: Swelling, Pain, Stiffness RESPIRATORY: Negative for: Cough, Shortness of breath, Wheezing GASTROINTESTINAL: Negative for: Heartburn, Constipation, Diarrhea, Blood in stool, Vomiting MUSCULOSKELETAL: Negative for: Muscle or joint pain, stiffness, Joint swelling NEUROLOGIC/PSYCHIATRIC: Negative for: Weakness, Paralysis, Numbness, Tingling, Tremor, Treatment for anxiety- taking Lexapro SKIN: Negative for: Rash, Itching GENITOURINARY: Negative for: vaginal itching, vaginal discharge, hematuria or dysuria PHYSICAL EXAM: BP 102/58 Wt 110 lb (49.9kg) GENERAL: pleasant female in no apparent distress DERMATOLOGY: Normal, without lesions, non-icteric and non-hirsute NECK: Supple and full range of motion CHEST: Normal inspiratory effort BREAST: deferred ABDOMEN: soft, non-tender and no masses NEURO: alert and oriented x3,exam grossly non-focal PELVIS: External genitalia normal without lesions. Perineal body intact. No vaginal or cervical lesions. Scant bleeding with exam. Cervix closed. Uterus 5 week size. No adnexal masses or tenderness. Clinical Pelvimetry: Pelvimetry clinically assessed as adequate Limited OB ultrasound exam: Viability US prior to visit- CATRINA 01/12/22 OB Risk Screening: Completed, no positive findings documented. ASSESSMENT/PLAN: 1. 6 weeks gestation of - ICD9: V22.2, ICD10: Z3A.01 (primary diagnosis) - Patient oriented to practice. Discussed nutrition, folic acid supplementation, dietary guidelines, exercise, smoking, alcohol, caffeine, and drug use. Discussed routine OB labs including STD/HIV. Discussed aneuploidy screening options including serum screening and nuchal translucency. CF carrier screening discussed and declined. MaterniT 21 desired- MFM to place order - CBC - SYPHILIS TOTAL W/REFLEX - RUBELLA IGG AB - HEP B SURF AG SCRN - HEP C AB IA W/CONF SCRN - HIV 1 2 COMBO(AG/AB),WITH REFLEX TO DIFFERENTIATION - TYPE + SCREEN - GC/CHLAMYDIA DNA DET - URINE CULTURE - PAP FLUID CERVICAL SCREENING 2. nausea preg - ICD9: 643.90, ICD10: O21.9 - Hand out on vitamin B6 and Unisom - patient to notify office if unable to keep food or drink down for 24 hours. 3. History of anxiety - ICD9: V11.8, ICD10: Z86.59 - Continue Lexapro 10 mg PO Daily 4. Hx of maternal laceration, 3rd degree, currently - ICD9: V23.49, ICD10: O09.299 - (more content not included)... [facility] 05-18-2021 Note HNO ID: [id number] Author: Cyndi Herrera RN Service: ? Author Type: ? Type: Progress Notes Filed: 05/18/2021 10:38 AM Note Text: # 1 - Date: 06/2017, Sex: None, Weight: None, GA: 6w0d, Delivery: None, Apgar1: None, Apgar5: None, Living: None, Comments: No DANIL # 2 - Date: 08/27/18, Sex: Male, Weight: 5 lb 9 oz (2.523 kg), GA: 39w2d, Delivery: Vaginal, Vacuum (Extractor), Apgar1: None, Apgar5: None, Living: Living, Comments: kidney stone during -passed on own # 3 - Date: 04/23/20, Sex: Female, Weight: 5 lb 6 oz (2.438 kg), GA: 39w6d, Delivery: Vaginal, Spontaneous, Apgar1: None, Apgar5: None, Living: Living, Comments: 2nd degre lac,100cc lood loss # 4 - Date: None, Sex: None, Weight: None, GA: None, Delivery: None, Apgar1: None, Apgar5: None, Living: None, Comments: None [facility] 05-10-2021 Note HNO ID: [id number] Author: Kina Oneil APRN.CNM Service: ? Author Type: Steam Fitter Supervisor Type: Progress Notes Filed: 05/10/2021 9:19 AM Note Text: Herrera Barry is a 25 year old female who presents for problem visit of missed menses and positive HPT x 2. She is new to clinic. Transfer from Dr. Poole. 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 First in 2018 through IVF- Vacuum delivery with 3rd degree laceration. Second natural conception- 2019 no lacerations. Patient does not have regular menses and is unsure of last period. Her and began actively trying in March 2021. This was a surprise. She started feeling dizzy around [place] and took HPT. Test was negative on 04/29/21 but positive on 05/01/21. Patient has a history of anorexia. Denies meal skipping but always thinking about what she is eating or amount of carbohydrates in the food. Interested in referral to nutrition and counseling. Denies any loss of fluid, vaginal bleeding or cramping. Denies any nausea. OB History T0 L2 SAB0 IAB0 Ectopic0 Multiple0 Live Births0 Comment: Never SA Tile Layer History LMP: 06/26/2019, None Age at Menarche: Age at First : Age at Menopause: Tile Layer History Comments: Sexual Activity: Never; No partner data on record Contraception: No contraception data on record PAST MEDICAL HISTORY Diagnosis Date - Anxiety - Gluten intolerance - Irritable bowel PAST SURGICAL HISTORY Procedure Laterality Date - EXTRACTION, ERUPTED TOOTH OR EXPOSED ROOT (ELEVATION AND/OR FORCEPS REMOVAL) - TONSILLECTOMY HX 2012 FAMILY HISTORY Problem Relation Age of Onset - Arthritis Mother RA - other (Other) Father blood clots Social History Tobacco Use - Smoking status: Never Smoker - Smokeless tobacco: Never Used Substance Use Topics - Alcohol use: No - Drug use: No Current Outpatient Medications Medication Sig - escitalopram oxalate (LEXAPRO) 10 mg tablet No current facility-administered medications for this visit. Allergies As of Date: 05/10/2021 Allergen Noted Reaction AMOXYCILLIN [AMOXICILLIN] 11/09/2011 Swelling Fully Assessed 05/10/2021 REVIEW OF SYSTEMS Abdomen: No bloating, early satiety, indigestion, or increased flatulence. No abdominal pain, nausea, vomiting, diarrhea, or constipation. Bladder: No dysuria, gross hematuria, urinary frequency, urinary urgency, or incontinence. Breast: No breast lumps, nipple d/c, overlying skin changes, redness or skin retraction. Expanded ROS: N/A Allergies and current medication updated:Yes EXAM: BP 96/60 Wt 111 lb (50.3kg) LMP 06/26/2019 GENERAL: pleasant, female in no apparent distress HEENT: Normocephalic and atraumatic NECK: Supple and full range of motion DERMATOLOGY: Normal BREAST: deferred CHEST: Normal inspiratory effort ABDOMEN: Deferred PELVIC: deferred BIMANUAL: deferred NEURO: alert and oriented x3,exam grossly non-focal EXTREMITIES: normal ASSESSMENT/PLAN: 1. Encounter for test, result positive - ICD9: V72.42, ICD10: Z32.01 (primary diagnosis) - HCG QUAL URINE- positive today in office 2. at early stage - ICD9: V22.2, ICD10: Z34.90 3. Amenorrhea - ICD9: 626.0, ICD10: N91.2 - HCG QUANTITATIVE - HCG QUANTITATIVE - OBSTETRIC ULTRASOUND WHI- Dating ultrasound 4. History of anorexia nervosa - ICD9: V11.8, ICD10: Z86.59 - CONSULT TO NUTRITION THERAPY - Interested in counseling- will attempt to get referral to [facility]- [facility] 5. Anxiety neurosis - ICD9: 300.00, ICD10: F41.1 - Lexapro 10 mg PO QD RTO- 2 weeks for PNOB, NOB, and OB US - Dating Records released signed to obtain previous OB records Kina Oneil APRN.CNM I spent a total of 45 minutes on the date of the service which included preparing to see the patient, [id number] patient care, completing clinical documentation, obtaining and/or reviewing separately obtained history, counseling and educating the patient/family/caregiver, ordering medications, tests, or procedures and communicating with other HCPs (not separately reported). [facility] documented as of this encounter (statuses as of 07/26/2021) [facility] History of Past illness Narrative* Problem Noted Date Resolved Date Uterine perforation 07/10/2019 07/10/2019 documented as of this encounter (statuses as of 08/21/2021) [address] History of Past illness Narrative* Problem Noted Date Resolved Date Uterine perforation 07/10/2019 07/10/2019 documented as of this encounter (statuses as of 08/21/2021) [address] History of Past illness Narrative* Problem Noted Date Resolved Date Uterine perforation 07/10/2019 07/10/2019 documented as of this encounter (statuses as of 08/22/2021) [address] History of Past illness Narrative* Problem Noted Date Resolved Date Uterine perforation 07/10/2019 07/10/2019 documented as of this encounter (statuses as of 09/11/2021) [address] History of Past illness Narrative* Problem Noted Date Resolved Date Uterine perforation 07/10/2019 07/10/2019 documented as of this encounter (statuses as of 09/12/2021) [address] History of Past illness Narrative* Problem Noted Date Resolved Date Uterine perforation 07/10/2019 07/10/2019 documented as of this encounter (statuses as of 10/17/2021) [facility] 15 weeks [facility] of - Primary state, incidental [facility] Diagnosis 19 weeks gestation of - Primary state, incidental documented in this encounter [facility] note* Diagnosis Encounter for anatomic survey- Primary documented in this encounter [facility] note* Diagnosis Encounter for follow-up ultrasound of anatomy- Primary 22 weeks gestation of state, incidental [facility]* Diagnosis 22 weeks gestation of - Primary state, incidental documented in this encounter [facility] for referral (narrative)* Diagnostic Procedure Only (Routine) - Authorized Specialty Diagnoses / Procedures Referred By Contac t Referred To Contact [facility] Diagnoses 15 weeks gestation of Procedures OBSTETRIC ULTRASOUND WHI US PREG UTERUS AFTER 1ST TRIMEST GESTATION Kina Oneil APRN.CNM [address] [place] [address] [facility] [address] [place] [address] Referral ID Status Reason Start Date Expiration Date Visits Requested Visits Authorized [id number] Authorized Auto-Generat ed Referral 07/26/2021 07/26/2022 1 1 [facility] for referral (narrative)* Diagnostic Procedure Only (Routine) - Pending Review Specialty Diagnoses / Procedures Referred By Contac t Referred To Contact [facility] Diagnoses 22 weeks gestation of Procedures OBSTETRIC ULTRASOUND WHI US PREG UTERUS AFTER 1ST TRIMEST GESTATION Kina Oneil APRN.CNM [address] [place] [address] 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 Advance Directive(s) 07/10/2019 12:51 PM Advance Directive(s) 07/07/2019 4:21 PM Documents on File Type Date 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 Advance Directive(s) 07/10/2019 12:51 PM Advance Directive(s) 07/07/2019 4:21 PM Additional Source Comments INFORMATION SOURCE (unrecogn ized section and content) DATE CREATED AUTHOR AUTHOR'S ORGANIZ ATION 07/11/2019 [facility] DATE CREATED AUTHOR AUTHOR'S ORGANIZ ATION 10/18/2021 [facility] DATE CREATED AUTHOR AUTHOR'S ORGANIZ ATION 01/03/2023 [facility] Source Comments (unrecognize d section and content) In the event this informatio n is protected by the Federal Confidentiality of Alcohol and Drug Abuse Patient Records regulations: The Federal rules restrict any use of the information to criminally investigate or prosecute any alcohol or drug abuse patient.[facility] the event this information is protected by the Federal Confidentiality of Alcohol and Drug Abuse Patient Records regulations: The Federal rules restrict any use of the information to criminally investigate or prosecute any alcohol or drug abuse patient.[facility] the event this information is protected by the Federal Confidentiality of Alcohol and Drug Abuse Patient Records regulations: The Federal rules restrict any use of the information to criminally investigate or prosecute any alcohol or drug abuse patient.[facility] the event this information is protected by the Federal Confidentiality of Alcohol and Drug Abuse Patient Records regulations: The Federal rules restrict any use of the information to criminally investigate or prosecute any alcohol or drug abuse patient.[facility] the event this information is protected by the Federal Confidentiality of Alcohol and Drug Abuse Patient Records regulations: The Federal rules restrict any use of the information to criminally investigate or prosecute any alcohol or drug abuse patient.[facility] the event this information is protected by the Federal Confidentiality of Alcohol and Drug Abuse Patient Records regulations: The Federal rules restrict any use of the information to criminally investigate or prosecute any alcohol or drug abuse patient.[facility] the event this information is protected by the Federal Confidentiality of Alcohol and Drug Abuse Patient Records regulations: The Federal rules restrict any use of the information to criminally investigate or prosecute any alcohol or drug abuse patient.[facility] Reason for Visit (unrecogniz ed section and content) Reason Onset Date Comments Care 08/21/2021 Reason Comments US Specialty Diagnoses / Procedures Referred By Contac t Referred To Contact [facility] Diagnoses 15 weeks gestation of Procedures OBSTETRIC ULTRASOUND WHI US PREG UTERUS AFTER 1ST TRIMEST GESTATION Kina Oneil APRN.CN [address] [place] [address] [facility] [address] [place] [address] Referral ID Status Reason Start Date Expiration Date V isits Requested Visits Authorized [id number] Closed Auto-Generate d Referral 07/26/2021 07/26/2022 1 1 Reason Comments Results Specialty Diagnoses / Procedures Referred By Contac t Referred To Contact [facility] Diagnoses 19 weeks gestation of Procedures OBSTETRIC ULTRASOUND WHI US PREG UTERUS AFTER 1ST TRIMEST GESTATION Kina Oneil APRN.CNM [address] [place] [address] [facility] [address] [place] [id number] Referral ID Status Reason Start Date Expiration Date V isits Requested Visits Authorized [id number] Closed Auto-Generate d Referral 08/22/2021 08/22/2022 1 1 Reason Comments Patient Update Care Teams (unrecognized sec tion and content) Residential Roofer Relationship Specialty Start Date End Date Destiny Lainez MD [address] [place] [place] [id number] PCP - General Family Practice 03/18/17 Residential Roofer Relationship Specialty Start Date End Date Destiny Lainez MD [address] [place], [place] [id number] PCP - [facility] 03/18/17 Residential Roofer Relationship Specialty Start Date End Date Destiny Lainez MD [address] [place] [address] PCP - [facility] Practice 03/18/17 Residential Roofer Relationship Specialty Start Date End Date Destiny Lainez MD [address] [place] [address] PCP - [facility] Practice 03/18/17 Residential Roofer Relationship Specialty Start Date End Date Destiny Lainez MD [address] [place] [address] PCP - [facility] Practice 03/18/17 FOR RECORDS PERTAINING TO PATIENTS WHO ARE OR HAVE BEEN ENROLLED IN A CHEMICAL DEPENDENCY/SUBSTANCEABUSE PROGRAM, SOME INFORMATION MAY BE OMITTED. This clinical summary was aggregated from multiple sources. Caution should be exercised in using it in the provision of clinical care. This summary normalizes information from multiple sources, and as a consequence, information in this document may materially change the coding, format and clinical context of patient data. In addition, data may be omitted in some cases. CLINICAL DECISIONS SHOULD BE BASED ON THE PRIMARY CLINICAL RECORDS. [facility] [employer] [facility]. provides no warranty or guarantee of the accuracy or completeness of information in this document.
[2023-05-15 18:37] LABS: HPV Reflexed? NOT INDICATED
== END | disposition home or self-care (01) ==
LOC: LABSPEC 16:49
PROVIDERS: PCP Family Medicine; Referring Provider Registered Nurse; Visit Provider Registered Nurse
DX: Z34.90 Encounter for supervision of normal pregnancy, unspecified, unspecified trimester (principal)
CPT/HCPCS: 87086; 87088; 88175; G0145

== ENCOUNTER → 2023-05-20 | Outpatient (CLI) | payer OTHER, SELFPAY ==
[2023-05-20 12:23] LABS: Absolute Lymphocyte Count 2.04 X10^3/uL (0.83-4.51); Absolute Neutrophil Count 4.3 X10^3/uL (2.0-7.7); Basophil# 0.05 X10^3/uL; Basophil% 0.7 % (0-1); Eosinophil# 0.11 X10^3/uL; Eosinophils% 1.5 % (0-5); Hematocrit 40.7 % (37-47); Hemoglobin 13.4 g/dL (12.0-15.0); Lymphocyte # 2.04 X10^3/ul (0.83-4.51); Lymphocyte % 28.1 % (19-41); Mean Corp Hgb Conc 32.9 g/dL (32-36); Mean Corpuscular Hgb 29.6 pg (27.0-32.0); Mean Corpuscular Volume 89.8 fL (81-99); Mean Platelet Vol. 10.9 fl (6.2-12.0); Monocyte# 0.74 X10^3/uL; Monocyte% 10.2 % (0-10); NRBC Flagged by Analyzer 0 % (0-5); Neutrophil % 59.2 % (47-70); Platelet Count 218 K/mm3 (150-450); RBC Distribution Width CV 13.7 % (11.6-14.6); Red Blood Count 4.53 M/mm3 (4.2-5.4); White Blood Count 7.3 K/mm3 (4.4-11.0)
--- OUTSIDE RECORDS SUMMARY | 2023-05-20 12:26 | XMS RPT_ITS | CCD ---
Author Name Unknown Address [address] [place] [address] Organization [facility] Care Team Providers Care Tool Mechanic Name Role Phone [place] DETAIL TECHNICIAN, Deana Reece Unavailable Samra Poole MD Unavailable [phone] THELMA WILL Unavailable Unavailable PROVIDER, UNKNOWN Unavailable Unavailable Destiny Lainez Unavailable Unavailable Patricia Rosales Unavailable Unavailab RYAN Bender Admitting RYAN [place] Attending DESTINY Valentine Primary Care Unavail RAYMOND Muse NP Admitting RAYMOND Lagunas NP Attending Lorrainea DESTINY Eaosn Primary Care Unavail Destiny Choi MD Primary Care Provider JESSE SANTOS Attending DESTINY Velez Primary Care Unavail able Allergies Allergy Classification Reported Allergen(s) Allergy Type Date of Onset Reaction(s) Facility (17 sources) amoxicillin; Translations: [AMOXICILLIN] drug allergy 11-09-2011 [facility] (1 source) Amoxicillin Drug Allergy [facility] Repository Medications Completed/Discontinued Medications Medication Drug Class(es) [...] 01-02-2023 Episodic Other aftercare (1 source) Other residential (current) drug therapy; Translations: [OTH RIVETER CURRENT DRUG THERAPY] Onset: 06-30-2019 Episodic Other [...] 14:37-0400 Body weight 55.79 kg Kina Oneil SOLDER LEVELER [employer]CNM Work Phone: [facility] 08-21-2021 14:37-0400 Diastolic blood pressure 60 mm[Hg] Kina Plotts SOLDER LEVEL[employer]CNM Work Phone: [facility] 08-21-2021 14:37-0400 Systolic blood pressure 98 mm[Hg] Kian Plotts SOLDER LEVEL[employer]CNM Work Phone: [facility] 07-26-2021 13:43-0400 Body weight 54.88 kg Kina Corneliusts SOLDER LEVELER [employer]CNM Work Phone: [facility] 07-26-2021 13:43-0400 Diastolic blood pressure 60 mm[Hg] Kina Plotts SOLDER LEVEL[employer]CNM Work Phone: [facility] 07-26-2021 13:43-0400 Systolic blood pressure 96 mm[Hg] Kina Oneil SARAH Work Phone: [facility] 01-21-2017 14:29-0400 BMI (Body Mass Index) 20.48 kg/m2 Deana Valverde DETAIL TECHNICIAN [facility] 01-21-2017 14:29-0400 Body Temperature 97.7 [degF] Deana Valverde DETAIL TECHNICIAN [facility] 01-21-2017 14:29-0400 BP Diastolic 70 mm[Hg] Deana Valverde DETAIL TECHNICIAN [facility] 01-21-2017 14:29-0400 BP Systolic 99 mm[Hg] Deana Valverde DETAIL TECHNICIAN [facility] 01-21-2017 14:29-0400 Height 158.75 cm Deana Valverde DETAIL TECHNICIAN [facility] 01-21-2017 14:29-0400 Pulse (Heart Rate) 65 /min Deana Valverde DETAIL TECHNICIAN [facility] 01-21-2017 14:29-0400 Respiratory Rate 16 /min Deana Valverde DETAIL TECHNICIAN [facility] 01-21-2017 14:29-0400 Weight 51.62 kg Deana Valverde DETAIL TECHNICIAN [facility] 11-28-2016 14:32-0400 BMI (Body Mass Index) 20.85 kg/m2 Deana Valverde DETAIL TECHNICIAN [facility] 11-28-2016 14:32-0400 Body Temperature 98.6 [degF] Deana Valverde DETAIL TECHNICIAN [facility] 11-28-2016 14:32-0400 BP Diastolic 70 mm[Hg] Deana Valverde DETAIL TECHNICIAN [facility] 11-28-2016 14:32-0400 BP Systolic 110 mm[Hg] Deana Valverde DETAIL TECHNICIAN [facility] 11-28-2016 14:32-0400 Height 157.48 cm Deana Valverde DETAIL TECHNICIAN [facility] 11-28-2016 14:32-0400 Pulse (Heart Rate) 57 /min Deana Valverde DETAIL TECHNICIAN [facility] 11-28-2016 14:32-0400 Respiratory Rate 16 /min [facility] 11-28-2016 14:32-0400 Weight 51.71 kg Deana [facility] Encounters Encounter Date Encounter Type Care Provider Facility Start: 01-02-2023 End: 01-02-2023 Emergency department patient visit JESSE AMOR [facility] Start: 09-25-2021 Telephone encounter Kina lozano [employer]SANDY Work Phone: OB/Gynecology Procedures Date Procedure Procedure Detail Performing Clinician Start: 09-11-2021 Us preg uterus after 1st trimest 05/06 gestation Kina Oneil [employer]CNM Work Phone: Start: 08-21-2021 Us preg uterus after 1st trimest 05/06 gestation Kina Oneil [employer]INDRAM Work Phone: Start: 08-21-2021 URINE OB DIP B/O Tanner Oneil [employer]SANDY Work Phone: Start: 07-26-2021 URINE OB DIP B/O Tanner Oneil [employer]CNKimberly Work Phone: Start: 06-23-2021 Antibody screen Plan of Treatment Date Care Activity Detail Author Start: 03-22-2030 Urine microalbumin profile DTAP,TDAP,TD (2 - Td or Tdap) [facility] Start: 05-22-2024 PAP TESTING PAP TESTING [facility] Start: 01-04-2022 Influenza vaccination INFLUENZ A (Season Ended) [facility] Start: 08-21-2021 End: 10-21-2021 ALPHA FETOPRO MATERNAL [facility] Work Phone: Immunizations Immunization Date Immunization Notes Care Provider Fa loc 03-22-2020 tetanus toxoid, redu saul diphtheria toxoid, and acellular pertussis vaccine, adsorbed Kina Oneil [employer]DER [employer]CNKimberly Work Phone: [facility] Work Phone: Payers Date Payer Category Payer Unknown MMO MMO [employer] [id number] 2018-Present [phone] [address] [place] [address] PPO [id number] 1993 Unknown [id number] 1993 Unknown [id number] 1993 Unknown [id number] 1959 Unknown [id number] Unknown Social History Date Type Detail Facility Start: 05-02-2016 Tobacco smoking stat [facility] Never smoked tobacco [facility] Start: 05-02-2016 Tobacco use and exposure Smokeless tobacco non-user [facility] Start: 07-26-2021 End: 08-21-2021 Alcohol intake Current non-drinker of alcohol (finding) [facility] Start: 05-18-2021 Education 17 [facility] Start: 04-21-2021 [facility] Start: 1995 Sex Assigned At Not on file [facility] Start: 08-11-2021 End: 09-12-2021 Exposure to SARS-CoV-2 (event) Not sure [facility] Work Phone: Clinical Notes 07-10-2019 to 10-17-2021 [...] Kina Oneil APRN.CNM documented in this encounter [facility] 08-22-2021 Miscellaneous Notes Follow-up Anatomy scheduled. Yahaira Mason RN Left message for patient to return phone call ----- Message from Kina Oneil APRN.CNM sent at 08/22/2021 9:07 AM EDT ----- Anatomy US reviewed. CSP, spine views were suboptimal. Repeat in 3 weeks. Order placed. Kina Oneil APRN.CNM documented in this encounter [facility] 08-21-2021 Miscellaneous Notes Herrera Barry is a [...] Kina Oneil APRN.CNM documented in this encounter [facility] 08-21-2021 Instructions Robyn Pate MA - 08/21/2021 2:14 PM EDT SEQUENTIAL SCREENINGS The [facility] offers sequential screenings for women who are [...] It will require an appointment with our ecologist technician. This is not an ultrasound performed [...] the above symptoms, contact our office at [phone] and ask to speak with a nurse. After hours, you can call doctors registry at [phone] OR call [facility] at [phone] and ask to have the doctor insulation blower paged. If you consider this an emergency, dial 01-04- or go to your nearest emergency department. NEED HELP? Are you dealing with a violent or abusive relationship? Are you a victim of rape or sexual assult? Call [facility] ([place]) 24 hour Crisis Hotline: 927.884.1182 or 526-938-6830. MANUAL Your Guide to a Healthy manual is now on-line. Visit [email or web address] to download your free copy documented in this encounter [facility] 07-26-2021 Miscellaneous Notes Herrera Barry is a [...] Kina Oneil APRN.CNM documented in this encounter [facility] 07-26-2021 Instructions Robyn Pate MA - 07/26/2021 1:40 PM EDT SEQUENTIAL SCREENINGS The [facility] offers sequential screenings for women who are [...] It will require an appointment with our ecologist technician. This is not an ultrasound performed [...] the above symptoms, contact our office at [phone] and ask to speak with a nurse. After hours, you can call doctors registry at [phone] OR call [facility] at [phone] and ask to have the doctor insulation blower paged. If you consider this an emergency, dial 6-1-7 or go to your nearest emergency department. NEED HELP? Are you dealing with a violent or abusive relationship? Are you a victim of rape or sexual assult? Call [facility] ([place]) 24 hour Crisis Hotline: 172.724.2842 or 995-809-5454. MANUAL Your Guide to a Healthy manual is now on-line. Visit [email or web address] Marco to download your free copy documented in this encounter [facility] 05-22-2021 Note HNO ID: [id number] Author: Kina Oneil APRN.CNM Service: ? 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 [facility] 05-18-2021 Note HNO ID: [id number] Author: Cyndi Herrera RN Service: ? Author Type: ? Type: Progress Notes Filed: 05/18/2021 10:38 AM Note Text: # 1 - Date: 06/2017, Sex: None, Weight: None, GA: 6w0d, Delivery: None, Apgar1: None, Apgar5: None, Living: None, Comments: No DANWA # 2 - Date: 08/27/18, Sex: Male, [...] None, Apgar5: None, Living: None, Comments: None [facility] 05-10-2021 Note HNO ID: [id number] Author: Kina Oneil APRN.CNM Service: ? Author Type: Presser First Type: Progress Notes Filed: 05/10/2021 9:19 AM Note Text: Herrera Barry is a 25 year old female who presents for problem visit of missed menses and positive HPT x 2. She is new to clinic. Transfer from Dr. Poole. Desires molder inflated ball care. First in 2018 through IVF- Vacuum [...] Ectopic0 Multiple0 Live Births0 Comment: Never SA Spa Concierge History LMP: 06/26/2019, None Age at Menarche: Age at First : Age at Menopause: Spa Concierge History Comments: Sexual Activity: Never; No partner [...] which included preparing to see the patient, [id number] patient care, completing clinical documentation, obtaining and/or reviewing separately obtained history, counseling and educating the patient/family/caregiver, ordering medications, tests, or procedures and communicating with other HCPs (not separately reported). [facility] documented as of this encounter (statuses as of 07/26/2021) [facility] History of Past illness Narrative* Problem Noted Date Resolved Date Uterine perforation 07/10/2019 07/10/2019 documented as of this encounter (statuses as of 08/21/2021) [address] History of Past illness Narrative* Problem Noted Date Resolved Date Uterine perforation 07/10/2019 07/10/2019 documented as of this encounter (statuses as of 08/21/2021) [address] History of Past illness Narrative* Problem Noted Date Resolved Date Uterine perforation 07/10/2019 07/10/2019 documented as of this encounter (statuses as of 08/22/2021) [address] History of Past illness Narrative* Problem Noted Date Resolved Date Uterine perforation 07/10/2019 07/10/2019 documented as of this encounter (statuses as of 09/11/2021) [address] History of Past illness Narrative* Problem Noted Date Resolved Date Uterine perforation 07/10/2019 07/10/2019 documented as of this encounter (statuses as of 09/12/2021) [address] History of Past illness Narrative* Problem Noted Date Resolved Date Uterine perforation 07/10/2019 07/10/2019 documented as of this encounter (statuses as of 10/17/2021) [facility] Diagnosis 15 weeks gestation of - Primary state, incidental [facility] Diagnosis 19 weeks gestation of - Primary state, incidental documented in this encounter [facility] note* Diagnosis Encounter for anatomic survey- Primary documented in this encounter [facility] note* Diagnosis Encounter for follow-up ultrasound of anatomy- Primary 22 weeks gestation of state, incidental [facility]* Diagnosis 22 weeks gestation of - Primary state, incidental documented in this encounter [facility] for referral (narrative)* Diagnostic Procedure Only (Routine) - Authorized Specialty Diagnoses / Procedures Referred By Contac t Referred To Contact [facility] Diagnoses 15 weeks gestation of Procedures OBSTETRIC ULTRASOUND WHI US PREG UTERUS AFTER 1ST TRIMEST GESTATION Kina Oneil APRN.CNM [address] [place] [address] [facility] [address] [place] [address] Referral ID Status Reason Start Date Expiration Date Visits Requested Visits Authorized [id number] Authorized Auto-Generat ed Referral 07/26/2021 07/26/2022 1 1 [facility] for referral (narrative)* Diagnostic Procedure Only (Routine) - Pending Review Specialty Diagnoses / Procedures Referred By Contac t Referred To Contact [facility] Diagnoses 22 weeks gestation of Procedures OBSTETRIC ULTRASOUND WHI US PREG UTERUS AFTER 1ST TRIMEST GESTATION Kina Oneil APRN.CNM [address] [place] [address] [facility] [address] [place] [address] Referral ID Status Reason Start Date Expiration Date Visits Requested Visits Authorized [id number] Pending Review Auto-Generat ed Referral 09/12/2021 09/12/2022 1 1 [facility] Summary Purpose Family History No Family History Records FoundNo Family History Records FoundNo Family History Records FoundNo Family History Records Found Advance Directives No Advanced Directives Records FoundDocuments on File Type Date Recorded Patient Berry Grower Expl anation Advance Directive(s) 07/10/2019 12:51 PM Advance Directive(s) 07/07/2019 4:21 PM Documents on File Type Date Recorded Patient Berry Grower Expl anation Advance Directive(s) 07/10/2019 12:51 PM Advance Directive(s) 07/07/2019 4:21 PM Additional Source Comments INFORMATION SOURCE (unrecogn ized section and content) DATE CREATED AUTHOR AUTHOR'S ORGANIZ ATION 07/11/2019 [facility] DATE CREATED AUTHOR AUTHOR'S ORGANIZ ATION 10/18/2021 [facility] DATE CREATED AUTHOR AUTHOR'S ORGANIZ ATION 01/03/2023 [facility] Source Comments (unrecognize d section and content) In the event this informatio n is protected by the Federal Confidentiality of Alcohol and Drug Abuse Patient Records regulations: The Federal rules restrict any use of the information to criminally investigate or prosecute any alcohol or drug abuse patient.[facility] the event this information is protected by the Federal Confidentiality of Alcohol and Drug Abuse Patient Records regulations: The Federal rules restrict any use of the information to criminally investigate or prosecute any alcohol or drug abuse patient.[facility] the event this information is protected by the Federal Confidentiality of Alcohol and Drug Abuse Patient Records regulations: The Federal rules restrict any use of the information to criminally investigate or prosecute any alcohol or drug abuse patient.[facility] the event this information is protected by the Federal Confidentiality of Alcohol and Drug Abuse Patient Records regulations: The Federal rules restrict any use of the information to criminally investigate or prosecute any alcohol or drug abuse patient.[facility] the event this information is protected by the Federal Confidentiality of Alcohol and Drug Abuse Patient Records regulations: The Federal rules restrict any use of the information to criminally investigate or prosecute any alcohol or drug abuse patient.[facility] the event this information is protected by the Federal Confidentiality of Alcohol and Drug Abuse Patient Records regulations: The Federal rules restrict any use of the information to criminally investigate or prosecute any alcohol or drug abuse patient.[facility] the event this information is protected by the Federal Confidentiality of Alcohol and Drug Abuse Patient Records regulations: The Federal rules restrict any use of the information to criminally investigate or prosecute any alcohol or drug abuse patient.[facility] Reason for Visit (unrecogniz ed section and content) Reason Onset Date Comments Care 08/21/2021 Reason Comments US Specialty Diagnoses / Procedures Referred By Contac t Referred To Contact [facility] Diagnoses 15 weeks gestation of Procedures OBSTETRIC ULTRASOUND WHI US PREG UTERUS AFTER 1ST TRIMEST GESTATION Kina Oneil APRN.CN [address] [place] [address] [facility] [address] [place] [address] Referral ID Status Reason Start Date Expiration Date V isits Requested Visits Authorized [id number] Closed Auto-Generate d Referral 07/26/2021 07/26/2022 1 1 Reason Comments Results Specialty Diagnoses / Procedures Referred By Contac t Referred To Contact [facility] Diagnoses 19 weeks gestation of Procedures OBSTETRIC ULTRASOUND WHI US PREG UTERUS AFTER 1ST TRIMEST GESTATION Kina Oneil APRN.CNM [address] [place] [address] [facility] [address] [place] [address] Referral ID Status Reason Start Date Expiration Date V isits Requested Visits Authorized [id number] Closed Auto-Generate d Referral 08/22/2021 08/22/2022 1 1 Reason Comments Patient Update Care Teams (unrecognized sec tion and content) Tool Mechanic Relationship Specialty Start Date End Date Destiny Lainez MD [address] [place], [place] [id number] PCP - General Family Practice 03/18/17 Tool Mechanic Relationship Specialty Start Date End Date Destiny Lainez MD [address] [place], [place] [id number] PCP - [facility] Family Practice 03/18/17 Tool Mechanic Relationship Specialty Start Date End Date Destiny Lainez MD [address] [place] [address] PCP - [facility] Practice 03/18/17 Tool Mechanic Relationship Specialty Start Date End Date Destiny Lainez MD [address] [place] [address] PCP - [facility] Practice 03/18/17 Tool Mechanic Relationship Specialty Start Date End Date Destiny Lainez MD [address] [place] [address] PCP - [facility] Practice 03/18/17 FOR RECORDS PERTAINING TO PATIENTS [...] BE BASED ON THE PRIMARY CLINICAL RECORDS. [facility] [employer] [facility]. provides no warranty or guarantee of the accuracy or completeness of information in this document.
[2023-05-20 13:07] LABS: NATERA MAILED SPECIMEN
[2023-05-20 13:43] LABS: HIV - WCH Non-Reactive (Nonreactive); Hepatitis B Surface Antigen Non-Reactive (Nonreactive); Hepatitis C Antibody Non-Reactive (Nonreactive); Rubella IgG Reactive (Nonreactive); Syphilis Antibodies Non-reactive; Vitamin D,25 Hydroxy 44.3 ng/mL
[2023-05-20 14:09] LABS: Iron 124 ug/dL (50-170); Iron Binding Capacity,Total 305 ug/dL (250-450); PERCENT IRON SATURATION 40.7 % (15.0-55.0)
== END | disposition home or self-care (01) ==
LOC: LABSPEC 11:51 → PAVLAB 11:52
PROVIDERS: PCP Family Medicine; Referring Provider Registered Nurse; Visit Provider Registered Nurse
DX: Z34.90 Encounter for supervision of normal pregnancy, unspecified, unspecified trimester (principal)
CPT/HCPCS: 36415; 82306; 82746; 83540; 83550; 85025; 86703; 86762; 86780; 86803; 86850; 86900; 86901; 87340